=== PATIENT | female | born 1980 | race Two or more races ===

== ENCOUNTER 2022-06-29 09:04 | Outpatient (REF) | payer OTHER, SELFPAY ==
--- NOTE | ~2022-06-29 | XR_ITS ---
EXAMINATION: XR RIGHT SHOULDER XR LEFT SHOULDER XR RIGHT WRIST XR LEFT WRIST CLINICAL INFORMATION: Rheumatoid arthritis. COMPARISON: None available. TECHNIQUE: AP, lateral and oblique views of each wrist. AP, Grashey, transscapular Y and axillary views of each shoulder. FINDINGS: RIGHT Wrist: Normal anatomic alignment. Joint spaces are maintained. No bony erosions. No displaced fracture. No focal radiographic soft tissue swelling. Shoulder: Normal alignment. Acromioclavicular and glenohumeral joint spaces are maintained. No displaced fracture or dislocation. No abnormal soft tissue calcifications posterior superior humeral head. LEFT Wrist: Normal anatomic alignment. Joint spaces are maintained. No bony erosions. No displaced fracture. No focal radiographic soft tissue swelling. Shoulder: Normal alignment. Acromioclavicular and glenohumeral joint spaces are maintained. No displaced fracture or dislocation. No abnormal soft tissue calcifications. XR/XR shoulder LT min 2V IMPRESSION: Right shoulder calcific tendinosis.
--- NOTE | ~2022-06-29 | XR_ITS ---
EXAMINATION: XR RIGHT SHOULDER XR LEFT SHOULDER XR RIGHT WRIST XR LEFT WRIST CLINICAL INFORMATION: Rheumatoid arthritis. COMPARISON: None available. TECHNIQUE: AP, lateral and oblique views of each wrist. AP, Grashey, transscapular Y and axillary views of each shoulder. FINDINGS: RIGHT Wrist: Normal anatomic alignment. Joint spaces are maintained. No bony erosions. No displaced fracture. No focal radiographic soft tissue swelling. Shoulder: Normal alignment. Acromioclavicular and glenohumeral joint spaces are maintained. No displaced fracture or dislocation. No abnormal soft tissue calcifications posterior superior humeral head. LEFT Wrist: Normal anatomic alignment. Joint spaces are maintained. No bony erosions. No displaced fracture. No focal radiographic soft tissue swelling. Shoulder: Normal alignment. Acromioclavicular and glenohumeral joint spaces are maintained. No displaced fracture or dislocation. No abnormal soft tissue calcifications. XR/XR shoulder RT min 2V IMPRESSION: Right shoulder calcific tendinosis.
--- NOTE | ~2022-06-29 | XR_ITS ---
EXAMINATION: XR RIGHT SHOULDER XR LEFT SHOULDER XR RIGHT WRIST XR LEFT WRIST CLINICAL INFORMATION: Rheumatoid arthritis. COMPARISON: None available. TECHNIQUE: AP, lateral and oblique views of each wrist. AP, Grashey, transscapular Y and axillary views of each shoulder. FINDINGS: RIGHT Wrist: Normal anatomic alignment. Joint spaces are maintained. No bony erosions. No displaced fracture. No focal radiographic soft tissue swelling. Shoulder: Normal alignment. Acromioclavicular and glenohumeral joint spaces are maintained. No displaced fracture or dislocation. No abnormal soft tissue calcifications posterior superior humeral head. LEFT Wrist: Normal anatomic alignment. Joint spaces are maintained. No bony erosions. No displaced fracture. No focal radiographic soft tissue swelling. Shoulder: Normal alignment. Acromioclavicular and glenohumeral joint spaces are maintained. No displaced fracture or dislocation. No abnormal soft tissue calcifications. XR/XR hand wrist RT IMPRESSION: Right shoulder calcific tendinosis.
--- NOTE | ~2022-06-29 | XR_ITS ---
EXAMINATION: XR RIGHT SHOULDER XR LEFT SHOULDER XR RIGHT WRIST XR LEFT WRIST CLINICAL INFORMATION: Rheumatoid arthritis. COMPARISON: None available. TECHNIQUE: AP, lateral and oblique views of each wrist. AP, Grashey, transscapular Y and axillary views of each shoulder. FINDINGS: RIGHT Wrist: Normal anatomic alignment. Joint spaces are maintained. No bony erosions. No displaced fracture. No focal radiographic soft tissue swelling. Shoulder: Normal alignment. Acromioclavicular and glenohumeral joint spaces are maintained. No displaced fracture or dislocation. No abnormal soft tissue calcifications posterior superior humeral head. LEFT Wrist: Normal anatomic alignment. Joint spaces are maintained. No bony erosions. No displaced fracture. No focal radiographic soft tissue swelling. Shoulder: Normal alignment. Acromioclavicular and glenohumeral joint spaces are maintained. No displaced fracture or dislocation. No abnormal soft tissue calcifications. XR/XR hand wrist LT IMPRESSION: Right shoulder calcific tendinosis.
[2022-06-29 10:13] LABS: MANUAL DIFF FLAG NO
[2022-06-29 10:29] LABS: Basophils Percent Auto 0.4 % (0-2); Eosinophils Absolute Auto 0.1 X10*3/uL (0.0-0.4); Eosinophils Percent Auto 1.6 % (0-4); Hematocrit 37.4 % (37.0-47.0); Hemoglobin 11.3 g/dl (12.0-16.0); Imm Gran Abs Auto 0.04 X10*3/uL (0.00-0.03); Imm Gran Pct Auto 0.4 % (0.0-0.4); Lymphocytes Absolute Auto 1.3 X10*3/uL (1.2-4.9); Mean Corpuscular HGB Conc 30.2 g/dl (31.0-35.0); Mean Corpuscular Volume 76.2 fL (80.0-98.0); Mean Platelet Volume 8.9 fL (9.4-12.3); Monocytes Absolute Auto 0.4 X10*3/uL (0.1-1.2); Monocytes Percent Auto 3.9 % (2-11); Neutrophils Absolute Auto 7.2 x10*3/uL (2.0-8.3); Neutrophils Percent Auto 79.7 % (45-73); Platelet Count 329 X10*3/uL (160-400); Red Blood Count 4.91 X10*6/uL (4.20-5.50)
[2022-06-29 10:48] LABS: Estimated Average Glucose 177 mg/dL; Hemoglobin A1c % 7.8 %
[2022-06-29 11:02] LABS: Appearance Urine Cloudy; Color Urine Orange; Glucose Urine UA Negative (Negative); Leukocyte Esterase Urine Moderate (2+) (Negative); Nitrite Urine Negative (Negative); Specific Gravity - Urine 1.025 (1.005-1.025); UMIC TRIGGER UA YES; Urine Blood Large (3+) (Negative); Urine Ketones Negative (Negative); Urine Protein 100 (2+) mg/dL (Neg-Trace)
[2022-06-29 11:07] LABS: Alanine Aminotransferase 13 U/L (0-31); Albumin Level 3.8 g/dL (3.5-5.0); Alkaline Phosphatase 83 U/L (39-117); Anion Gap 14 (12-20); Aspartate Amino Transferase 11 U/L (5-31); Bilirubin Total 0.8 mg/dL (0.0-1.0); Blood Urea Nitrogen 19 mg/dL (9-16); C Reactive Protein 5.92 mg/dL (< or = 0.50); Calcium 8.9 mg/dL (8.4-10.2); Carbon Dioxide 24 mmol/L (22-29); Chloride 105 mmol/L (96-108); Estimated Glomerular Filt Rate > 60; Glucose Random 134 mg/dL (60-115); Potassium 4.3 mmol/L (3.3-5.1); Rheumatoid Factor < 13.0 IU/mL (<15.0); Sodium 139 mmol/L (135-145)
[2022-06-29 11:11] LABS: Bacteria Urine None Seen (None Seen); Hyaline Casts Urine 0-2 /LPF (0-2); Other Crystals Urine Present
[2022-06-29 11:21] LABS: Erythrocyte Sedimentation Rate 54 MM/HR (0-20)
[2022-06-29 11:25] LABS: Creatinine Urine 191.25 mg/dL; Protein/Creatinine Ratio, Ur 0.19 (<0.2); Total Protein Urine Random 36 mg/dL (<12)
[2022-06-29 11:28] LABS: HBc Num1 0.05 S/CO (0.00-0.79); HIV AB/AG Nonreactive (Nonreactive); HIV Num 1 0.06 S/CO (0.00-0.99); Hepatitis A Antibody IgM 0.13 Index (0-0.79); Hepatitis B Core Antibody Nonreactive (Nonreactive); Hepatitis B Surface Antigen Negative (Negative); ~HepC Num1 0.11 S/CO (0.00-0.79); ~Hepatitis A Antibody IgM Nonreactive (Nonreactive); ~Hepatitis B Surface Antibody NONREACTIVE (Nonreactive); ~Hepatitis C Antibody Nonreactive (Nonreactive)
[2022-07-01 23:39] LABS: TS Negative Control Passed; TS Panel A 0; TS Panel B 0; TS Positive Control Passed; TSpotTB Negative (Negative)
[2022-07-02 13:13] LABS: Cyclic Citrullinated Peptide <16 UNITS
[2022-07-02 20:57] LABS: Anti DNA DS Antibody <1 IU/mL; Antibody to SS-A Antigen <1.0 NEG AI (<1.0 NEG); Antibody to SS-B Antigen <1.0 NEG AI (<1.0 NEG); SM/Ribonucleoprotein Ab <1.0 NEG AI (<1.0 NEG); Smith Protein <1.0 NEG AI (<1.0 NEG)
[2022-07-03 07:43] LABS: Complement C3 185 mg/dL (83-193)
[2022-07-03 23:23] LABS: Prot Elec - Albumin 3.6 g/dL (3.8-4.8); Prot Elec - Alpha1 0.4 g/dL (0.2-0.3); Prot Elec - Beta 1 0.5 g/dL (0.4-0.6); Prot Elec - Beta 2 0.5 g/dL (0.2-0.5); Prot Elec - Gamma 1.3 g/dL (0.8-1.7); Prot Elec - Total Protein 7.4 g/dL (6.1-8.1)
[2022-07-04 07:13] LABS: DRVVT Confirmation Negative (Negative); Hexagonal Phase Neutralization Weak Positive (Negative)
[2022-07-04 07:50] LABS: PTT (LAC) Screen 45 sec (<=40); Thrombin Clotting Time 17 sec (13-19)
[2022-07-05 12:09] LABS: IgA 261 mg/dL (47-310); IgG 1358 mg/dL (600-1640); IgM 85 mg/dL (50-300)
[2022-07-06 14:29] LABS: Beta-2 Glycoprotein IgA <2.0 U/mL (<20.0); Beta-2 Glycoprotein IgG <2.0 U/mL (<20.0); Beta-2 Glycoprotein IgM 2.7 U/mL (<20.0)
[2022-07-07 12:43] LABS: DNAds, Crithidia Antibody Negative (Negative)
[2022-07-10 14:08] LABS: Cardiolipin IgG Ab <2.0 GPL-U/mL; Cardiolipin IgM Ab 2.3 MPL-U/mL
[2022-07-10 15:19] LABS: Anti Nuclear Antibody Screen POSITIVE (NEGATIVE)
== END 2022-06-29 09:05 | disposition home or self-care (01) ==
LOC: HO.XRAY 09:04
PROVIDERS: Visit Provider Student in an Organized Health Care Education/Training Program
DX: Z11.59 Encounter for screening for other viral diseases (principal); Z11.4 Encounter for screening for human immunodeficiency virus [HIV]; L93.0 Discoid lupus erythematosus; M06.9 Rheumatoid arthritis, unspecified; D68.61 Antiphospholipid syndrome; E11.9 Type 2 diabetes mellitus without complications; M25.50 Pain in unspecified joint; Z72.89 Other problems related to lifestyle
CPT/HCPCS: 36415; 73030; 73110; 73130; 80053; 81001; 82550; 82784; 83036; 84156; 84165; 84550; 85025; 85597; 85613; 85652; 85730; 86038; 86039; 86140; 86146; 86147; 86160; 86200; 86225; 86235; 86255; 86334; 86431; 86481; 86704; 86706; 86709; 86803; 87340; 87389; 99202

== ENCOUNTER → 2022-09-05 13:47 | Outpatient (REF) | payer OTHER, SELFPAY ==
--- NOTE | 2022-09-05 13:51 | CA_ITS ---
Transthoracic Echocardiogram Patient (Last, First, Middle): Lucero Fonseca, Gender: Female Date of : 1980 Age: 42 Procedure Date: 09/05/2022 Procedure Type: Transthoracic Echocardiogram Location: OP Height: 167.64 cm Weight: 176.9 kg BSA: 2.66 m2 Heart Rate: 93 bpm BP: 130 / 65 mmHg Microbiology Lab Assistant: TALISHA Referring MD: Mallory BOOGIE Garbage Pick Up Man: Emanuel Graves MD Symptoms: galvan, morbid obesity, hx MN R06.09 Study Quality: Technically Difficult ECG Rhythm: Sinus Conclusions: - 1. Technically limited study despite use of contrast agent 2. Low normal LV ejection fraction 50-55% with grade 1 diastolic dysfunction 3. Limited visualization of cardiac valves with cardiac valvular Doppler within normal limits Findings Procedure Information Contrast agent, definity, is being given per protocol without apparent complications. Left Ventricle Normal left ventricular cavity size. There is mildly increased left ventricular wall thickness. The left ventricular systolic function is low normal. Spectral Doppler is indicative of an impaired relaxation filling pattern. E/E prime ratio is <8, consistent with normal filling pressures. Evidence suggests grade I (mild) diastolic dysfunction. Right Ventricle The right ventricle was not well visualized. Atria The left atrium was not well visualized. Interatrial shunt cannot be excluded. The right atrium was not well visualized. Aortic Valve The aortic valve was not well visualized. There is no aortic valve stenosis. There is no aortic valve regurgitation. Mitral Valve The mitral valve was not well visualized. There is trace mitral valve regurgitation. There is no mitral valve stenosis. Pulmonic Valve The pulmonic valve was not well visualized. Tricuspid Valve The tricuspid valve was not well visualized. Tricuspid regurgitation envelope is inadequate for calculation of right ventricular systolic pressure. Great Vessels The aorta was not well visualized. The pulmonary artery was not well visualized. Venous The inferior vena cava was not well visualized. Pericardium/Pleural The pericardium was not well visualized. Prior Study Comparison No prior study available for comparison. Measurements 2D Linear Measurements IVSd: 1.30 0.6-0.9/0.6-1.0 cm LVIDd: 4.20 3.9-5.3/4.2-5.9 cm LVIDd Index: 1.58 2.4-3.2/2.2-3.1 cm/m2 LVIDs: 2.50 2.0-3.6 cm LVPWd: 1.35 0.7-1.1 cm LA Diam: 3.40 2.7-3.8/3.0-4.0 cm LAIDs Index: 1.28 1.5-2.3 cm/m2 LV Mass: 279.67 67-162/88-224 g LV Mass Index: 105.14 43-95/49-115 g/m2 LVOT Diam: 2.00 3.0+(-)1.3 cm 2D Systolic Function EF 4C: 54.80 >55% EF 2C: 51.40 >55% EF BiP: 52.80 >55% Mitral Valve MV Pk E: 0.56 MV PK A: 0.72 MV Decel Time: 349.00 E/A: 0.80 E'Lateral: 9.90 E'Medial: 6.31 E/E' Med: 8.90 E/E' Lat: 5.70 PHT: 102.00 MVA PHT: 2.16 Decel Hamlin: 1.61 Aortic Valve AoV Pk Nii: 1.29 AoV Mn Nii: 0.96 AoV VTI: 0.23 AoV Pk Grad: 7.00 Aov Mn Grad: 4.00 MESHA Cont.VTI: 2.68 LVOT LVOT Pk Nii: 1.04 LVOT Mn Nii: 0.74 LVOT VTI: 0.19 LVOT Pk Grad: 4.00 LVOT Mn Grad: 3.00 LVOT Diam: 2.00 LVOT Area: 3.14 Diastolic Function MV Pk E: 0.56 MV Pk A: 0.72 E/A: 0.80 E'Medial: 6.31 E/E' Med: 8.90 E' Laterial: 9.90 E/E' Lat: 5.70 Right Ventricle TAPSE (mm): 19.80 TVS' Nii: 13.60 Great Vessels Aorta Sinus of Valsalva: 3.60 2.0-3.5 cm Ao Asc: 3.30 2.1-3.4 cm Pulmonary Valve PV Pk Nii: 1.06 Peak PV Grad: 4.00 Updated in Other Vendor System with Status of Final Emanuel Graves MD electronically signed on 09/06/2022 12:24:45 PM with status of Final
== END ==
LOC: HO.CARD 13:47
PROVIDERS: Visit Provider Nurse Practitioner Family
DX: R06.09 Other forms of dyspnea (principal)
CPT/HCPCS: 93306; Q9957

== ENCOUNTER → 2022-09-05 13:51 | Outpatient (BNV) | payer OTHER, SELFPAY | PROVIDERS: Visit Provider Internal Medicine Cardiovascular Disease | DX: I51.9 Heart disease, unspecified (principal); R06.09 Other forms of dyspnea | CPT/HCPCS: 93306 ==

== ENCOUNTER 2022-09-19 08:23 | Outpatient (AMB) | payer OTHER, SELFPAY ==
--- NOTE | 2022-09-19 08:32 | MHC.OFFVIS ---
Intake Vital Signs 09/19/22 08:33 09/19/22 08:47 Height 5 ft 6 in Weight 439 lb 13.155 oz BMI 71.0 BP 160/80 H 152/95 H Blood Pressure Location Rt radial Rt radial Position Sitting Sitting Pulse 83 Pulse Source Pulse Oximeter Temp 97.9 F Temp Source Skin Pulse Oximetry (%) 97 Intake Visit Reasons: SLE Intake Note: Pt seen today for SLE follow up and test results. Jersey Knitter Required: No Accompanied by: Self / Same As Patient Allergies aspirin Allergy (Unknown, Verified 09/19/22 08:35) Unknown clindamycin Allergy (Unknown, Verified 09/19/22 08:35) Unknown diazepam [From Valium] Allergy (Unknown, Verified 09/19/22 08:35) Unknown gabapentin [From Neurontin] Allergy (Unknown, Verified 09/19/22 08:35) Unknown hydroxychloroquine Allergy (Unknown, Verified 09/19/22 08:35) Unknown ibuprofen Allergy (Unknown, Verified 09/19/22 08:35) Unknown morphine Allergy (Unknown, Verified 09/19/22 08:35) Unknown naproxen Allergy (Unknown, Verified 09/19/22 08:35) Unknown Sulfa (Sulfonamide Antibiotics) Allergy (Unknown, Verified 09/19/22 08:35) Unknown sulfamethoxazole [From Bactrim] Allergy (Unknown, Verified 09/19/22 08:35) Unknown sumatriptan Allergy (Unknown, Verified 09/19/22 08:35) Unknown tramadol Allergy (Unknown, Verified 09/19/22 08:35) Unknown trimethoprim [From Bactrim] Allergy (Unknown, Verified 09/19/22 08:35) Unknown Medication List - Last Reconciled 09/19/22 by Shannan Arrieta MD acetaminophen ER 1,300 mg PO DAILY dulaglutide (Trulicity) 0.75 mg subcut QWEEK duloxetine 60 mg PO DAILY erenumab-aooe (Aimovig Autoinjector) mg subcut .qmonth ferrous sulfate 325 mg PO DAILY fluticasone propionate 110 mcg/actuation (Flovent HFA) 1 puff inhalation BID PRN furosemide 20 mg PO DAILY PRN loratadine 10 mg PO DAILY medroxyprogesterone 150 mg IM [id number] metformin 500 mg PO BID sennosides (senna) 34.4 mg PO BID verapamil 40 mg PO DAILY PRN HPI HPI Comments History of Present Illness Details Patient returns for follow-up after completion of her blood work. Continues to feel about the same Initial history: This is a 41-year-old female presents for evaluation of multiple joint pain. She has a complex past medical history. 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 Patient walks with a cane for left leg weakness. She states that she has had diffuse pain for many years, she has had pain since she was a child. She had an spinal injection about 10 years ago without relief. She is currently on duloxetine for diffuse pain. She states that she was diagnosed with rheumatoid arthritis by Dr. Serrano in [place], she lost her follow-up appointment so she was unable to see her again. More recently she was diagnosed with lupus by her PCP. Patient states that she has morning stiffness of her hands and multiple joints in her body the last around 2 hours. She takes Tylenol with little relief. She also takes duloxetine for pain. She has rashes on her face that vary in severity. She is unaware of any other rashes. She is unaware of history of blood clots. She has never been . She has a maternal aunt with lupus and another maternal aunt with rheumatoid arthritis. [facility] Medical History (Updated 09/19/22 @ 13:15 by Shannan Arrieta MD) Abnormal Papanicolaou smear of cervix Arthritis of both knees Cardiac arrest Depressive disorder Fibromyalgia Irregular periods Morbid obesity Polyarthralgia PTSD (post-traumatic stress disorder) Type 2 diabetes mellitus Surgical History Hx of dilation and curettage Family History Mother Diabetes Hypertension Multiple myeloma Father Diabetes Hypertension Heart disease Social History Alcohol intake: current Alcohol intake frequency: does not drink Patient Tobacco Use Status: Never used Tobacco e-Cigarette/Vaping Use: Never Used Review of Systems Const Reports fatigue and Reports weakness Musc Reports arthralgias, Reports joint swelling and Reports stiffness Skin/Breast Reports rash Neuro Reports weakness Endo Reports fatigue Physical Exam Vital Signs: Last Vital Signs Temp 97.9 F 09/19/22 08:33 Pulse 83 09/19/22 08:33 BP 152/95 H 09/19/22 08:47 Pulse Ox 97 09/19/22 08:33 BMI result Body Mass Index 71.0 Const General: cooperative and healthy appearing Nutritional Appearance: obese morbidly obese Orientation/consciousness: patient oriented x3 HEENT Head: Yes normocephalic and Yes atraumatic Resp Effort & Inspection: normal respiratory effort and able to speak in complete sentences Skin Other: Butterfly are rash on her cheeks and across her nose with sparing of the nasolabial fold, Neuro General: patient oriented x3 Extrem Other: Significantly limited shoulder abduction bilaterally Multiple fibromyalgia tender points No wrist swelling or tenderness but pain with full extension bilaterally Normal nailfold capillaroscopy Results Reviewed Results Reviewed: Labs 04/05? Ferritin 37 (6-115) Iron 26 (35-150) TIBC 326 (250-450) TSH normal? CRP 49 (0-9.0) ESR 34 CMP unremarkable CBC unremarkable Assessment & Plan Assessment & Plan (1) Undifferentiated connective tissue disease: Code(s): M35.9 - Systemic involvement of connective tissue, unspecified Plan: This is a 42-year-old female who presents for evaluation of diffuse joint pain for many years.? On exam she has a rash across her face suspicious for a malar rash.? SLE and rheumatoid arthritis run on the maternal side of her family.? Labs show a positive BLAKE with negative sub serologies, normal complements, no cytopenias. She has significantly elevated inflammatory markers which can be related to obesity. Will start a Plaquenil trial. If no improvement in 3-6 months. Will discontinue (2) Long-term use of hydroxychloroquine: Code(s): Z79.899 - Other [facility] (current) drug therapy Plan: Discussed risks of retinopathy of hydroxychloroquine. Referred patient to an nut tightener for an eye exam. Per notes patient had an allergy to hydroxychloroquine in the past. Patient does not recall. Will restart cautiously. Plan I spent 26 minutes reviewing patient's chart, evaluating patient, ordering diagnostic workup, counseling patient and documenting in the chart Orders: Orders Lupus Anticoagulant Panel Today M32.9 - Systemic lupus erythematosus, unspecified Anti DNA DS Antibody Today M32.9 - Systemic lupus erythematosus, unspecified Complement C3 Today M32.9 - Systemic lupus erythematosus, unspecified Complement C4 Today M32.9 - Systemic lupus erythematosus, unspecified C Reactive Protein Today M32.9 - Systemic lupus erythematosus, unspecified Erythrocyte Sedimentation Rate Today M32.9 - Systemic lupus erythematosus, unspecified Protein Creatinine Ratio, Ur Today M32.9 - Systemic lupus erythematosus, unspecified UA w Microscopic Today M32.9 - Systemic lupus erythematosus, unspecified Complete Blood Count Auto Diff Today M32.9 - Systemic lupus erythematosus, unspecified Comprehensive Met. Panel Today M32.9 - Systemic lupus erythematosus, unspecified Referrals Ophthalmology Referral Z79.899 - Other terminal block assembler (current) drug therapy Medications: New hydroxychloroquine 200 mg PO DAILY 60 tabs 2RF Coding Level of Care Code Est Pt Level 4 (83233) Diagnoses Undifferentiated connective tissue disease M35.9 Long-term use of hydroxychloroquine Z79.899
[2022-09-19 08:33] VITALS: BP 160/80; PULSE 83; TEMP 36.6; O2SAT 97; BMI 71.0
[2022-09-19 08:47] VITALS: BP 152/95
== END 2022-09-19 09:10 | disposition home or self-care (01) ==
PROVIDERS: PCP Nurse Practitioner Family; Visit Provider Student in an Organized Health Care Education/Training Program
DX: M35.89 Other specified systemic involvement of connective tissue (principal); Z79.899 Other long term (current) drug therapy
CPT/HCPCS: 99214

== ENCOUNTER → 2022-09-19 08:23 | Outpatient (BNVA) | payer OTHER, SELFPAY | PROVIDERS: Visit Provider Student in an Organized Health Care Education/Training Program | DX: M35.9 Systemic involvement of connective tissue, unspecified (principal); Z79.899 Other long term (current) drug therapy | CPT/HCPCS: 99212 ==

== ENCOUNTER 2022-12-20 12:46 | Outpatient (REF) | payer OTHER, SELFPAY ==
[2022-12-20 13:05] LABS: MANUAL DIFF FLAG NO
[2022-12-20 13:27] LABS: Basophils Absolute Auto 0.1 X10*3/uL (0.0-0.2); Basophils Percent Auto 0.6 % (0-2); Eosinophils Absolute Auto 0.1 X10*3/uL (0.0-0.4); Eosinophils Percent Auto 1.2 % (0-4); Hematocrit 40.8 % (37.0-47.0); Hemoglobin 12.4 g/dl (12.0-16.0); Imm Gran Abs Auto 0.06 X10*3/uL (0.00-0.03); Imm Gran Pct Auto 0.6 % (0.0-0.4); Lymphocytes Absolute Auto 1.5 X10*3/uL (1.2-4.9); Lymphocytes Percent Auto 15.9 % (20-40); Mean Corpuscular HGB Conc 30.4 g/dl (31.0-35.0); Mean Corpuscular Hemoglobin 23.4 pg (27.0-33.0); Mean Corpuscular Volume 76.8 fL (80.0-98.0); Mean Platelet Volume 8.8 fL (9.4-12.3); Monocytes Absolute Auto 0.5 X10*3/uL (0.1-1.2); Neutrophils Absolute Auto 7.3 x10*3/uL (2.0-8.3); Neutrophils Percent Auto 76.7 % (45-73); Platelet Count 286 X10*3/uL (160-400); Red Blood Count 5.31 X10*6/uL (4.20-5.50); Red Cell Distribution Width 16.9 % (11.0-16.0); White Blood Count 9.5 X10*3/uL (4.8-10.8)
[2022-12-20 14:14] LABS: Erythrocyte Sedimentation Rate 53 MM/HR (0-20)
[2022-12-20 14:19] LABS: Appearance Urine Clear; Color Urine Yellow; Glucose Urine UA >=1000 mg/dL (Negative); Leukocyte Esterase Urine Negative (Negative); Nitrite Urine Negative (Negative); PH 5.5 (5.0-9.0); Specific Gravity - Urine >= 1.030 (1.005-1.025); UMIC TRIGGER UA YES; Urine Blood Negative (Negative); Urine Ketones Trace mg/dL (Negative); Urine Protein Trace mg/dL (Neg-Trace)
[2022-12-20 14:20] LABS: Alanine Aminotransferase 9 U/L (0-31); Alkaline Phosphatase 107 U/L (39-117); Anion Gap 13 (12-20); Aspartate Amino Transferase 9 U/L (5-31); Bilirubin Total 0.5 mg/dL (0.0-1.0); Blood Urea Nitrogen 24 mg/dL (9-16); C Reactive Protein 4.03 mg/dL (< or = 0.50); Calcium 9.6 mg/dL (8.4-10.2); Carbon Dioxide 26 mmol/L (22-29); Chloride 100 mmol/L (96-108); Estimated Glomerular Filt Rate > 60; Potassium 4.3 mmol/L (3.3-5.1); Sodium 135 mmol/L (135-145); Total Protein 8.1 g/dL (6.5-8.0)
[2022-12-20 14:24] LABS: Glucose Random 360 mg/dL (60-115)
[2022-12-20 14:31] LABS: Bacteria Urine Trace (None Seen); Hyaline Casts Urine 0-2 /LPF (0-2); RBC Urine 0-2 /HPF (0-2); WBC Urine 0-5 /HPF (0-5)
[2022-12-20 15:05] LABS: Creatinine Urine 185.65 mg/dL; Protein/Creatinine Ratio, Ur 0.11 (<0.2); Total Protein Urine Random 20 mg/dL (<12)
[2022-12-21 12:53] LABS: Anti DNA DS Antibody <1 IU/mL
[2022-12-24 12:53] LABS: Complement C3 121 mg/dL (83-193)
[2022-12-27 07:19] LABS: PTT (LAC) Screen 37 sec (<=40)
== END 2022-12-20 12:47 | disposition home or self-care (01) ==
LOC: HO.LAB 12:46
PROVIDERS: PCP Nurse Practitioner Family; Visit Provider Student in an Organized Health Care Education/Training Program
DX: M32.9 Systemic lupus erythematosus, unspecified (principal); M35.9 Systemic involvement of connective tissue, unspecified; Z79.899 Other long term (current) drug therapy
CPT/HCPCS: 36415; 80053; 81001; 82570; 84156; 85025; 85597; 85598; 85613; 85652; 85730; 86140; 86160; 86225; 99212

== ENCOUNTER 2022-12-20 13:17 | Outpatient (AMB) | payer OTHER, SELFPAY ==
--- NOTE | 2022-12-20 13:28 | MHC.OFFVIS ---
Intake Vital Signs 12/20/22 13:29 Height 5 ft 6 in Weight 440 lb 4.21 oz BMI 71.1 BP 148/76 H Blood Pressure Location Rt brachial Position Sitting Pulse 108 H Pulse Source Pulse Oximeter Temp 97.2 F Temp Source Skin Pulse Oximetry (%) 96 Intake Visit Reasons: UCTD Intake Note: Pt last seen 09/19/22, presents today for follow up and test results. Acacia Walton approx a month ago, in ICU 3-4 days Sales Support Associate Required: No Accompanied by: Self / Same As Patient Allergies aspirin Allergy (Unknown, Verified 12/20/22 13:34) Unknown clindamycin Allergy (Unknown, Verified 12/20/22 13:34) Unknown diazepam [From Valium] Allergy (Unknown, Verified 12/20/22 13:34) Unknown gabapentin [From Neurontin] Allergy (Unknown, Verified 12/20/22 13:34) Unknown hydroxychloroquine Allergy (Unknown, Verified 12/20/22 13:34) Unknown ibuprofen Allergy (Unknown, Verified 12/20/22 13:34) Unknown morphine Allergy (Unknown, Verified 12/20/22 13:34) Unknown naproxen Allergy (Unknown, Verified 12/20/22 13:34) Unknown Sulfa (Sulfonamide Antibiotics) Allergy (Unknown, Verified 12/20/22 13:34) Unknown sulfamethoxazole [From Bactrim] Allergy (Unknown, Verified 12/20/22 13:34) Unknown sumatriptan Allergy (Unknown, Verified 12/20/22 13:34) Unknown tramadol Allergy (Unknown, Verified 12/20/22 13:34) Unknown trimethoprim [From Bactrim] Allergy (Unknown, Verified 12/20/22 13:34) Unknown Medication List - Last Reconciled 12/20/22 by Shannan Arrieta MD acetaminophen ER 1,300 mg PO DAILY dulaglutide (Trulicity) 0.75 mg subcut QWEEK duloxetine 60 mg PO DAILY erenumab-aooe (Aimovig Autoinjector) mg subcut .qmonth ferrous sulfate 325 mg PO DAILY fluticasone propionate 110 mcg/actuation (Flovent HFA) 1 puff inhalation BID PRN furosemide 20 mg PO DAILY PRN hydroxychloroquine 200 mg PO DAILY loratadine 10 mg PO DAILY medroxyprogesterone 150 mg IM [id number] metformin 500 mg PO BID sennosides (senna) 34.4 mg PO BID verapamil 40 mg PO DAILY PRN HPI HPI Comments History of Present Illness Details Patient returns for follow-up. She states that towards the end of October, early November she presented to her PCP with left upper extremity weakness, numbness. She stated that her PCP noted left facial droop and sent her to the ER. She stated that she was admitted at [facility] in the ICU for 3-4 days for suspected stroke. She states that multiple tests were done. She not recall whether she was diagnosed with a stroke. She was not started on regular blood thinners. She has been taking hydroxychloroquine 1 tab daily since last visit. She does not believe she had any side effects or benefits from it. She continues to have the rash on her face. Initial history: This is a 41-year-old female presents for evaluation of multiple joint pain. She has a complex past medical history. 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 Patient walks with a cane for left leg weakness. She states that she has had diffuse pain for many years, she has had pain since she was a child. She had an spinal injection about 10 years ago without relief. She is currently on duloxetine for diffuse pain. She states that she was diagnosed with rheumatoid arthritis by Dr. Serrano in [place], she lost her follow-up appointment so she was unable to see her again. More recently she was diagnosed with lupus by her PCP. Patient states that she has morning stiffness of her hands and multiple joints in her body the last around 2 hours. She takes Tylenol with little relief. She also takes duloxetine for pain. She has rashes on her face that vary in severity. She is unaware of any other rashes. She is unaware of history of blood clots. She has never been . She has a maternal aunt with lupus and another maternal aunt with rheumatoid arthritis. [facility] Medical History Polyarthralgia Cardiac arrest Irregular periods Type 2 diabetes mellitus Morbid obesity Depressive disorder Fibromyalgia Abnormal Papanicolaou smear of cervix PTSD (post-traumatic stress disorder) Arthritis of both knees Surgical History Hx of dilation and curettage Family History Mother Diabetes Hypertension Multiple myeloma Father Diabetes Hypertension Heart disease Social History Alcohol intake: current Alcohol intake frequency: does not drink Patient Tobacco Use Status: Never used Tobacco e-Cigarette/Vaping Use: Never Used Review of Systems Const Reports fatigue and Reports weakness Musc Reports arthralgias and Reports stiffness Skin/Breast Reports rash Neuro Reports weakness Endo Reports fatigue Physical Exam Vital Signs: Last Vital Signs Temp 97.2 F 12/20/22 13:29 Pulse 108 H 12/20/22 13:29 BP 148/76 H 12/20/22 13:29 Pulse Ox 96 12/20/22 13:29 BMI result Body Mass Index 71.1 Const General: cooperative and healthy appearing Nutritional Appearance: obese morbidly obese Orientation/consciousness: patient oriented x3 HEENT Head: Yes normocephalic and Yes atraumatic Resp Effort & Inspection: normal respiratory effort and able to speak in complete sentences Neuro General: patient oriented x3 Extrem Other: Significantly limited shoulder abduction bilaterally Multiple fibromyalgia tender points No wrist swelling or tenderness but pain with full extension bilaterally Normal nailfold capillaroscopy Results Reviewed Results Reviewed: Labs 04/05? Ferritin 37 (6-115) Iron 26 (35-150) TIBC 326 (250-450) TSH normal? CRP 49 (0-9.0) ESR 34 CMP unremarkable CBC unremarkable Assessment & Plan Assessment & Plan (1) Undifferentiated connective tissue disease: Code(s): M35.9 - Systemic involvement of connective tissue, unspecified Plan: This is a 42-year-old female who presents for evaluation of diffuse joint pain for many years.? On exam she has a rash across her face, but it is not indurated. SLE and rheumatoid arthritis run on the maternal side of her family.? Labs show a positive BLAKE with negative sub serologies, normal complements, no cytopenias. She has significantly elevated inflammatory markers which can be related to obesity. Patient mentions that she was admitted at [facility] last month for a suspected stroke. Will retrieve records Patient has been taking hydroxychloroquine 200 mg daily for the last 3 months without any noticeable symptomatic improvement. Repeat labs are pending. Will review repeat labs and call patient. Will consider discontinuing hydroxychloroquine. (2) Long-term use of hydroxychloroquine: Code(s): Z79.899 - Other shelter (current) drug therapy Plan: Patient just saw steam fitter supervisor and was referred for a visual field test. Plan I spent 26 minutes reviewing patient's chart, evaluating patient, counseling patient and documenting in the chart Coding Level of Care Code Est Pt Level 4 (93770) Diagnoses Undifferentiated connective tissue disease M35.9 Long-term use of hydroxychloroquine Z79.899
[2022-12-20 13:29] VITALS: BP 148/76; PULSE 108; TEMP 36.2; O2SAT 96; BMI 71.1
== END 2022-12-20 14:02 | disposition home or self-care (01) ==
PROVIDERS: PCP Nurse Practitioner Family; Visit Provider Student in an Organized Health Care Education/Training Program
DX: M35.89 Other specified systemic involvement of connective tissue (principal); Z79.899 Other long term (current) drug therapy
CPT/HCPCS: 99214

== ENCOUNTER 2022-12-20 14:09 | Emergency (ER) | payer OTHER, MEDICAID, SELFPAY ==
--- NOTE | ~2022-12-20 | XR_ITS ---
EXAMINATION: XR FINGER, RIGHT CLINICAL INFORMATION: Trauma to index finger COMPARISON: None available. TECHNIQUE: 3 views of the right hand with attention to the index finger. FINDINGS: The bones and soft tissues are normal. No fracture. Alignment is anatomic. Joint spaces are maintained. XR/XR finger RT min 2V IMPRESSION: Normal finger radiographs.
[2022-12-20 15:20] VITALS: BP 148/93; PULSE 92; RESP 18; TEMP 36.1; O2SAT 98; BMI 63.6
[2022-12-20 16:00] VITALS: PULSE 96; RESP 14; O2SAT 96
--- NOTE | 2022-12-20 16:39 | ED_ITS ---
HPI - Extremity Problem General Chief complaint: Extremity Injury, Upper Stated complaint: Injury right hand Time Seen by Provider: 12/20/22 16:08 Source: patient Mode of arrival: ambulatory Limitations: no limitations History of Present Illness HPI Narrative: Patient is a 42-year-old [id number] female presenting to the emergency department with complaint of right index finger pain after accidentally getting her hand caught in a closing door home earlier today. She reports some numbness/tingling to distal tip of her finger. She reports limited range of motion due to pain. MD Complaint: extremity pain Onset (ago): hour(s) Pain Consistency: constant Location: right, upper extremity and other (index finger) Quality: aching Radiation: none Relieving factors: rest Exacerbating factors: palpation Associated symptoms: denies other symptoms Related Data Home Medications Medication Instructions Recorded Confirmed duloxetine 60 mg capsule,delayed 60 mg PO DAILY 06/20/22 release ferrous sulfate 325 mg (65 mg 325 mg PO DAILY 06/20/22 iron) tablet loratadine 10 mg capsule 10 mg PO DAILY 06/20/22 medroxyprogesterone 150 mg/mL 150 mg IM [id number] 06/20/22 intramuscular suspension acetaminophen 650 mg 1,300 mg PO DAILY 09/19/22 tablet,extended release dulaglutide 0.75 mg/0.5 mL 0.75 mg subcut QWEEK 09/19/22 subcutaneous pen injector (Trulicity) erenumab-aooe 140 mg/mL mg subcut .qmonth 09/19/22 subcutaneous auto-injector (Aimovig Autoinjector) fluticasone propionate 110 1 puff inhalation BID PRN 09/19/22 mcg/actuation HFA aerosol inhaler (Flovent HFA) furosemide 20 mg tablet 20 mg PO DAILY PRN 09/19/22 metformin 500 mg tablet 500 mg PO BID 09/19/22 sennosides 8.6 mg tablet (senna) 34.4 mg PO BID constipation 09/19/22 verapamil 40 mg tablet 40 mg PO DAILY PRN 09/19/22 Previous Rx's Medication Instructions Recorded hydroxychloroquine 200 mg tablet 200 mg PO DAILY #60 tabs 09/19/22 Allergies Allergy/AdvReac Type Severity Reaction Status Date / Time aspirin Allergy Unknown Unknown Verified 12/20/22 15:19 clindamycin Allergy Unknown Unknown Verified 12/20/22 15:19 diazepam [From Valium] Allergy Unknown Unknown Verified 12/20/22 15:19 gabapentin [From Neurontin] Allergy Unknown Unknown Verified 12/20/22 15:19 hydroxychloroquine Allergy Unknown Unknown Verified 12/20/22 15:19 ibuprofen Allergy Unknown Unknown Verified 12/20/22 15:19 morphine Allergy Unknown Unknown Verified 12/20/22 15:19 naproxen Allergy Unknown Unknown Verified 12/20/22 15:19 Sulfa (Sulfonamide Allergy Unknown Unknown Verified 12/20/22 15:19 Antibiotics) sulfamethoxazole Allergy Unknown Unknown Verified 12/20/22 15:19 [From Bactrim] sumatriptan Allergy Unknown Unknown Verified 12/20/22 15:19 tramadol Allergy Unknown Unknown Verified 12/20/22 15:19 trimethoprim [From Bactrim] Allergy Unknown Unknown Verified 12/20/22 15:19 Review of Systems Review of Systems: As per HPI. Yes all other systems are reviewed and are negative Constitutional: Constitutional: Reports as per HPI PMFSH Past Medical History Medical History Polyarthralgia Cardiac arrest Irregular periods Type 2 diabetes mellitus Morbid obesity Depressive disorder Fibromyalgia Abnormal Papanicolaou smear of cervix PTSD (post-traumatic stress disorder) Arthritis of both knees Surgical History Hx of dilation and curettage Family History Family History Mother Diabetes Hypertension Multiple myeloma Father Diabetes Hypertension Heart disease Social History Social History Alcohol intake: current Alcohol intake frequency: does not drink Patient Tobacco Use Status: Never used Tobacco e-Cigarette/Vaping Use: Never Used Advance Directives: No Physical Exam Vital Signs: Vital Signs: Last Vital Signs Temp 97 F 12/20/22 15:20 Pulse 96 12/20/22 16:00 Resp 14 12/20/22 16:00 BP 148/93 H 12/20/22 15:20 Pulse Ox 96 12/20/22 16:00 O2 Del Method Room Air 12/20/22 16:00 BMI result Body Mass Index 63.6 Vital signs have been reviewed and appear to be correct. Blood pressure elevated. Heart rate normal. Respiratory rate normal. Temperature normal. Oxygen saturation normal. Const: General: cooperative and no acute distress Orientation/consciousness: oriented to person, oriented to place, oriented to time and patient oriented x3 Limitations: no limitations HEENT: Head: Yes normocephalic and Yes atraumatic Ears: external ears normal General nose exam: Normal external nose present Face and sinus: Yes face symmetric Mouth: oropharynx normal and moist mucous membranes Throat: Yes uvula midline Eyes: Pupils: Equal, round and reactive pupils present Neck: Neck: Yes normal visual inspection and Yes supple Resp: Effort & Inspection: normal respiratory effort and able to speak in complete sentences Auscultation: clear to auscultation bilaterally Cardio: Rate: regular rate Rhythm: regular rhythm Heart sounds: S1 normal heart sound present and S2 normal heart sound present Skin: General skin exam: elasticity normal and turgor normal Neuro: General: oriented to person, oriented to place, oriented to time, patient oriented x3, moves all extremities, no focal motor deficits and CN's II- XI intact bilaterally Cranial nerves: Yes Equal, round and reactive pupils present Cognition (Neuro): normal cognition Extrem: General: Yes full ROM Right upper extremity: Extremity exam: right hand Details: normal capillary refill, neuromotor exam normal, neurosensory exam normal, tenderness Location: of the 2nd digit Location: involving the entire digit, normal ROM of fingers and abnormal ROM of finger (unable to fully flex 2nd digit due to pain) Psych: Mental Status: mental status grossly normal Affect: normal affect Thought process: Normal thought process present Medical Decision Making Medical Decision Making MDM Narrative: Patient is a 42-year-old [id number] female presenting to the emergency department with complaint of right index finger pain after accidentally getting her hand caught in a closing door home earlier today. On exam patient is awake, A+Ox3, BP elevated, VS otherwise WNL, afebrile, normal neurological exam without focal deficits, physical exam findings as above. Given reported symptoms and physical exam findings, initial differential includes contusion, fracture, dislocation. X-ray notable for no evidence of fracture to 2nd finger on right hand. My interpretation is in agreement with the radiologist's interpretation. Results discussed with patient all questions answered. Advised patient to utilize Tylenol as needed for discomfort as well as apply ice for 10- 15 minutes at a time throughout the day. Discussed with patient that she can watson tape to 3rd finger for support or comfort if needed. Will refer to Ortho for any ongoing symptoms. Return precautions discussed. Patient verbalized understanding of and agreement with plan. Differential Diagnosis Differential Diagnoses: The differential diagnosis associated with the presentation includes As per MDM. Independent Interpretation I performed an independent interpretation of an: Plain X-Ray Interpretation: No evidence of fracture of 2nd finger of right hand Radiology Impression Discussion of test interpretation with radiology: I have reviewed the radiologist's reading. Radiologist Impression: XR/XR finger RT min 2V IMPRESSION: Normal finger radiographs. External Record Review External record reviewed: Inpatient record, Office record and Outpatient record Discharge Plan Discharge Clinical Impression: Contusion of index finger Qualifiers: Encounter type: initial encounter Damage to nail status: without damage Laterality: right Qualified Code(s): S60.021A - Contusion of right index finger without damage to nail, initial encounter Patient Disposition: Home, Self-Care Instructions: Contusion in Adults (ED) Additional Instructions: You have been evaluated in the emergency department today for finger pain. Your evaluation did not find evidence of medical conditions requiring emergent intervention at this time. Please rest, ice, and elevate your finger, and resume normal activities as tolerated. We recommend you take 650mg Tylenol every 6 hours as needed for pain. Please schedule an appointment for follow-up with your primary care provider this week. Return to the emergency department if you experience worsening pain, numbness, tingling, change of color in your finger, or any other concerning symptoms. If your symptoms do not slowly improve over the next 1-2 weeks, please follow up with orthopedics. Prescriptions: No Action duloxetine 60 mg capsule,delayed release(DR/EC) 60 mg PO DAILY medroxyprogesterone 150 mg/mL suspension 150 mg IM [id number] ferrous sulfate 325 mg (65 mg iron) tablet 325 mg PO DAILY loratadine 10 mg capsule 10 mg PO DAILY acetaminophen 650 mg tablet extended release 1,300 mg PO DAILY Trulicity 0.75 mg/0.5 mL pen injector 0.75 mg subcut QWEEK Aimovig Autoinjector 140 mg/mL auto-injector subcut .qmonth fluticasone propionate [Flovent HFA] 110 mcg/actuation HFA aerosol inhaler 1 puff inhalation BID PRN furosemide 20 mg tablet 20 mg PO DAILY PRN sennosides [senna] 8.6 mg tablet 34.4 mg PO BID verapamil 40 mg tablet 40 mg PO DAILY PRN metformin 500 mg tablet 500 mg PO BID hydroxychloroquine 200 mg tablet 200 mg PO DAILY Qty: 60 2RF Referrals: [facility] [Provider Group]
== END 2022-12-20 17:47 | disposition home or self-care (01) ==
PROVIDERS: Emergency Provider Emergency Medicine; PCP Nurse Practitioner Family
DX: S60.021A Contusion of right index finger without damage to nail, initial encounter (principal); W23.1XXA Caught, crushed, jammed, or pinched between stationary objects, initial encounter; Y93.89 Activity, other specified; Y92.039 Unspecified place in apartment as the place of occurrence of the external cause; Y99.9 Unspecified external cause status
CPT/HCPCS: 73140; 99283; 99284

== ENCOUNTER 2023-07-25 16:12 | Outpatient (REF) | payer OTHER, SELFPAY ==
[2023-07-25 16:44] LABS: MANUAL DIFF FLAG NO
[2023-07-25 17:11] LABS: Basophils Absolute Auto 0.1 X10*3/uL (0.0-0.2); Basophils Percent Auto 0.5 % (0-2); Eosinophils Absolute Auto 0.2 X10*3/uL (0.0-0.4); Eosinophils Percent Auto 1.6 % (0-4); Hematocrit 40.3 % (37.0-47.0); Hemoglobin 12.6 g/dl (12.0-16.0); Imm Gran Abs Auto 0.07 X10*3/uL (0.00-0.03); Imm Gran Pct Auto 0.6 % (0.0-0.4); Lymphocytes Percent Auto 18.2 % (20-40); Mean Corpuscular HGB Conc 31.3 g/dl (31.0-35.0); Mean Corpuscular Hemoglobin 24.2 pg (27.0-33.0); Mean Corpuscular Volume 77.5 fL (80.0-98.0); Mean Platelet Volume 8.5 fL (9.4-12.3); Monocytes Absolute Auto 0.6 X10*3/uL (0.1-1.2); Monocytes Percent Auto 5.3 % (2-11); Neutrophils Absolute Auto 8.1 x10*3/uL (2.0-8.3); Neutrophils Percent Auto 73.8 % (45-73); Platelet Count 315 X10*3/uL (160-400)
[2023-07-25 17:13] LABS: Appearance Urine Cloudy; Color Urine Dark Yellow; Glucose Urine UA Negative (Negative); Leukocyte Esterase Urine Trace (Negative); Nitrite Urine Negative (Negative); PH 5.5 (5.0-9.0); Specific Gravity - Urine >= 1.030 (1.005-1.025); UMIC TRIGGER UA YES; Urine Blood Trace (Negative); Urine Ketones Trace mg/dL (Negative); Urine Protein Trace mg/dL (Neg-Trace)
[2023-07-25 17:41] LABS: Creatinine Urine 184.61 mg/dL; Microalbum/Creatinine Ratio Ur 10.2 ug/mg cr (<30); Protein/Creatinine Ratio, Ur 0.09 (<0.2); Total Protein Urine Random 16 mg/dL (<12)
[2023-07-25 17:42] LABS: Anion Gap 12 (12-20); Blood Urea Nitrogen 20 mg/dL (9-16); Calcium 9.5 mg/dL (8.4-10.2); Carbon Dioxide 25 mmol/L (22-29); Chloride 101 mmol/L (96-108); Estimated Glomerular Filt Rate > 60; Glucose Random 175 mg/dL (60-115); Sodium 134 mmol/L (135-145)
[2023-07-25 17:51] LABS: Bacteria Urine 3+ (None Seen); Hyaline Casts Urine 0-2 /LPF (0-2); WBC Urine 0-5 /HPF (0-5)
[2023-07-26 06:23] LABS: Parathyroid Hormone Intact 65.7 pg/mL (8.7-77.1)
[2023-07-26 12:23] LABS: Complement C3 160 mg/dL (83-193)
[2023-07-26 20:38] LABS: Anti DNA DS Antibody <1 IU/mL
[2023-07-30 00:08] LABS: VITAMIN D (1,25 OH) D3 32 pg/mL; Vit D (1,25-Dihydroxy) Total 32 pg/mL (18-72); Vitamin D (1,25 OH) D2 <8 pg/mL
[2023-07-31 11:09] LABS: Anti Nuclear Antibody Pattern Nuclear, Speckled; Anti Nuclear Antibody Screen POSITIVE (NEGATIVE)
== END 2023-07-25 16:13 | disposition home or self-care (01) ==
LOC: HO.LAB 16:12
PROVIDERS: Visit Provider Internal Medicine
DX: E11.22 Type 2 diabetes mellitus with diabetic chronic kidney disease (principal); D68.62 Lupus anticoagulant syndrome
CPT/HCPCS: 36415; 80048; 81001; 82043; 82570; 82652; 83970; 84156; 85025; 86038; 86039; 86160; 86225

== ENCOUNTER 2023-08-05 14:57 | Outpatient (AMB) | payer OTHER, SELFPAY ==
--- NOTE | 2023-08-05 15:00 | MHC.OFFVIS ---
Vital Signs 08/05/23 15:03 Height 5 ft 9 in Weight 440 lb 14.792 oz BMI 65.1 BP 122/70 Blood Pressure Location Rt brachial Position Sitting Pulse 108 H Pulse Source Pulse Oximeter Pulse Oximetry (%) 95 Oxygen Delivery Method Room Air Intake Visit Reasons: jessa+ve/cm Intake Note: Pt last seen in December, presents today for follow up. States she is always tired; reports abnormal UA with PCP, following with nephrology for hematuria. Tobacco Buyer Required: No Accompanied by: Self / Same As Patient Allergies aspirin Allergy (Unknown, Verified 08/05/23 15:09) Unknown clindamycin Allergy (Unknown, Verified 08/05/23 15:09) Unknown diazepam [From Valium] Allergy (Unknown, Verified 08/05/23 15:09) Unknown gabapentin [From Neurontin] Allergy (Unknown, Verified 08/05/23 15:09) Unknown hydroxychloroquine Allergy (Unknown, Verified 08/05/23 15:09) Unknown ibuprofen Allergy (Unknown, Verified 08/05/23 15:09) Unknown morphine Allergy (Unknown, Verified 08/05/23 15:09) Unknown naproxen Allergy (Unknown, Verified 08/05/23 15:09) Unknown Sulfa (Sulfonamide Antibiotics) Allergy (Unknown, Verified 08/05/23 15:09) Unknown sulfamethoxazole [From Bactrim] Allergy (Unknown, Verified 08/05/23 15:09) Unknown sumatriptan Allergy (Unknown, Verified 08/05/23 15:09) Unknown tramadol Allergy (Unknown, Verified 08/05/23 15:09) Unknown trimethoprim [From Bactrim] Allergy (Unknown, Verified 08/05/23 15:09) Unknown glipizide Adverse Reaction (Verified 08/05/23 15:12) Gastrointestinal Upset metformin high dose Adverse Reaction (Uncoded 08/05/23 15:12) Gastrointestinal Upset Medication List - Last Reconciled 08/05/23 by Shannan Arrieta MD acetaminophen ER 1,300 mg PO DAILY dulaglutide (Trulicity) 0.75 mg subcut QWEEK duloxetine 60 mg PO DAILY erenumab-aooe (Aimovig Autoinjector) mg subcut .qmonth ferrous sulfate 325 mg PO DAILY fluticasone propionate 110 mcg/actuation (Flovent HFA) 1 puff inhalation BID PRN furosemide 20 mg PO DAILY PRN hydroxychloroquine 200 mg PO DAILY loratadine 10 mg PO DAILY medroxyprogesterone 150 mg IM [id number] metformin 500 mg PO BID sennosides (senna) 34.4 mg PO BID verapamil 40 mg PO DAILY PRN HPI Comments Details: Patient returns for follow-up. She states that she feels generalized fatigue. She was recently evaluated by a inclusion teacher due to hematuria. She otherwise feels about the same overall. Initial history: This is a 41-year-old female presents for evaluation of multiple joint pain. She has a complex past medical history. 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 Patient walks with a cane for left leg weakness. She states that she has had diffuse pain for many years, she has had pain since she was a child. She had an spinal injection about 10 years ago without relief. She is currently on duloxetine for diffuse pain. She states that she was diagnosed with rheumatoid arthritis by Dr. Serrano in [place], she lost her follow-up appointment so she was unable to see her again. More recently she was diagnosed with lupus by her PCP. Patient states that she has morning stiffness of her hands and multiple joints in her body the last around 2 hours. She takes Tylenol with little relief. She also takes duloxetine for pain. She has rashes on her face that vary in severity. She is unaware of any other rashes. She is unaware of history of blood clots. She has never been . She has a maternal aunt with lupus and another maternal aunt with rheumatoid arthritis. [facility] Medical History Polyarthralgia Cardiac arrest Irregular periods Type 2 diabetes mellitus Morbid obesity Depressive disorder Fibromyalgia Abnormal Papanicolaou smear of cervix PTSD (post-traumatic stress disorder) Arthritis of both knees Surgical History Hx of dilation and curettage Family History Mother Diabetes Hypertension Multiple myeloma Father Diabetes Hypertension Heart disease Social History Alcohol intake: current Alcohol intake frequency: does not drink Patient Tobacco Use Status: Never used Tobacco e-Cigarette/Vaping Use: Never Used Female Reproductive History Menstrual Total pregnancies: 0 Review of Systems Const Reports fatigue and Reports weakness Musc Reports arthralgias and Reports stiffness Neuro Reports weakness Endo Reports fatigue Physical Exam Vital Signs: Last Vital Signs Pulse 108 H 08/05/23 15:03 BP 122/70 08/05/23 15:03 Pulse Ox 95 08/05/23 15:03 Oxygen Delivery Method Room Air 08/05/23 15:03 BMI result Body Mass Index 65.1 Const General: cooperative and healthy appearing Nutritional Appearance: obese morbidly obese Orientation/consciousness: patient oriented x3 Limitations: ambulation with walker HEENT Head: Yes normocephalic and Yes atraumatic Resp Effort & Inspection: normal respiratory effort and able to speak in complete sentences Auscultation: clear to auscultation bilaterally Cardio Rate: regular rate Rhythm: regular rhythm Neuro General: patient oriented x3 Extrem Other: No active synovitis Few fibromyalgia tender points Normal nailfold capillaroscopy Assessment & Plan Assessment & Plan (1) Undifferentiated connective tissue disease: Code(s): M35.9 - Systemic involvement of connective tissue, unspecified Category: Medical Plan: This is a 42-year-old female who presents for evaluation of diffuse joint pain for many years.? On exam she has a rash across her face, but it is not indurated. SLE and rheumatoid arthritis run on the maternal side of her family.? Labs show a positive JESSA with negative sub serologies, normal complements, no cytopenias. No proteinuria. She has significantly elevated inflammatory markers which can be related to obesity. Patient took hydroxychloroquine regularly for 3 months without any improvement. It was discontinued. Upon evaluation I do not see any signs suggestive of an autoimmune rheumatic disease that require a DMARD. Follow-up p.r.n. Plan I spent 16 minutes reviewing patient's chart, evaluating patient, counseling patient and documenting in the chart Coding Level of Care Code Est Pt Level 3 (98767) Diagnoses Undifferentiated connective tissue disease M35.9
[2023-08-05 15:03] VITALS: BP 122/70; PULSE 108; O2SAT 95; BMI 65.1
== END 2023-08-05 15:22 | disposition home or self-care (01) ==
PROVIDERS: PCP Nurse Practitioner Family; Visit Provider Student in an Organized Health Care Education/Training Program
DX: M35.89 Other specified systemic involvement of connective tissue (principal)
CPT/HCPCS: 99213

== ENCOUNTER → 2023-08-05 14:57 | Outpatient (BNVA) | payer OTHER, SELFPAY | PROVIDERS: PCP Nurse Practitioner Family; Visit Provider Student in an Organized Health Care Education/Training Program | DX: M35.9 Systemic involvement of connective tissue, unspecified (principal) | CPT/HCPCS: 99212 ==

== ENCOUNTER 2023-09-28 09:54 | Outpatient (REF) | payer OTHER, SELFPAY ==
[2023-09-28 10:09] LABS: MANUAL DIFF FLAG NO
[2023-09-28 11:08] LABS: Appearance Urine Cloudy; Color Urine Yellow; Glucose Urine UA >=1000 mg/dL (Negative); Leukocyte Esterase Urine Negative (Negative); Nitrite Urine Negative (Negative); PH 5.5 (5.0-9.0); Specific Gravity - Urine >= 1.030 (1.005-1.025); UMIC TRIGGER UA YES; Urine Blood Negative (Negative); Urine Ketones 15 mg/dL (Negative); Urine Protein Negative (Neg-Trace)
[2023-09-28 11:10] LABS: Basophils Absolute Auto 0.1 X10*3/uL (0.0-0.2); Basophils Percent Auto 0.5 % (0-2); Eosinophils Absolute Auto 0.1 X10*3/uL (0.0-0.4); Eosinophils Percent Auto 1.2 % (0-4); Hematocrit 41.4 % (37.0-47.0); Hemoglobin 12.5 g/dl (12.0-16.0); Imm Gran Abs Auto 0.14 X10*3/uL (0.00-0.03); Imm Gran Pct Auto 1.3 % (0.0-0.4); Lymphocytes Absolute Auto 1.6 X10*3/uL (1.2-4.9); Lymphocytes Percent Auto 15.4 % (20-40); Mean Corpuscular HGB Conc 30.2 g/dl (31.0-35.0); Mean Corpuscular Hemoglobin 23.9 pg (27.0-33.0); Mean Platelet Volume 8.8 fL (9.4-12.3); Monocytes Absolute Auto 0.5 X10*3/uL (0.1-1.2); Monocytes Percent Auto 4.2 % (2-11); Neutrophils Absolute Auto 8.2 x10*3/uL (2.0-8.3); Neutrophils Percent Auto 77.4 % (45-73); Platelet Count 361 X10*3/uL (160-400); Red Blood Count 5.24 X10*6/uL (4.20-5.50); Red Cell Distribution Width 16.3 % (11.0-16.0); White Blood Count 10.6 X10*3/uL (4.8-10.8)
[2023-09-28 11:24] LABS: Bacteria Urine 1+ (None Seen); Hyaline Casts Urine 0-2 /LPF (0-2); Other Crystals Urine Present; RBC Urine 0-2 /HPF (0-2); WBC Urine 0-5 /HPF (0-5)
[2023-09-28 11:41] LABS: Parathyroid Hormone Intact 58.5 pg/mL (8.7-77.1)
[2023-09-28 11:42] LABS: Creatinine Urine 178.62 mg/dL; Microalbum/Creatinine Ratio Ur 7.8 ug/mg cr (<30); Protein/Creatinine Ratio, Ur 0.07 (<0.2); Total Protein Urine Random 13 mg/dL (<12)
[2023-09-28 11:44] LABS: Anion Gap 13 (12-20); Blood Urea Nitrogen 16 mg/dL (9-16); Calcium 9.7 mg/dL (8.4-10.2); Carbon Dioxide 24 mmol/L (22-29); Chloride 106 mmol/L (96-108); Estimated Glomerular Filt Rate > 60; Glucose Random 174 mg/dL (60-115); Potassium 4.1 mmol/L (3.3-5.1); Sodium 139 mmol/L (135-145)
[2023-09-28 12:04] LABS: Vitamin D 25-OH Total 34.2 ng/mL (>30)
[2023-09-30 09:48] LABS: Complement C3 143 mg/dL (83-193)
[2023-09-30 22:19] LABS: Anti DNA DS Antibody <1 IU/mL
[2023-10-04 15:29] LABS: Anti Nuclear Antibody Pattern Nuclear, Speckled; Anti Nuclear Antibody Screen POSITIVE (NEGATIVE)
== END 2023-09-28 09:55 | disposition home or self-care (01) ==
LOC: HO.LAB 09:54
PROVIDERS: PCP Nurse Practitioner Family; Visit Provider Internal Medicine
DX: D68.62 Lupus anticoagulant syndrome (principal)
CPT/HCPCS: 36415; 80048; 81001; 82043; 82306; 82570; 83970; 84156; 85025; 86038; 86039; 86160; 86225

== ENCOUNTER 2023-10-13 12:50 | Inpatient (IN) | payer OTHER, SELFPAY ==
--- NOTE | ~2023-10-13 | CT_ITS ---
EXAMINATION: CT HEAD WITHOUT CONTRAST CT ANGIOGRAM HEAD CT ANGIOGRAM NECK CLINICAL INFORMATION: Left facial weakness. History of stroke. COMPARISON: None available. TECHNIQUE: Initial noncontrast emotional support teacher imaging of the head and neck was performed. Noncontrast head CT was also performed. Test bolus sequences followed by intravenous administration 70 mL of Omnipaque 350. Helical imaging was performed in the axial plane from the aortic arch to the skull vertex. Delayed postcontrast imaging of the head was also performed. The data was processed at the process safety engineering technologist's workstation for generation of MIP sequences. Angled MIPs and volume rendered reformatted images were also generated at an offline 3D workstation. Stenoses are assessed in accordance with NASCET criteria unless otherwise indicated. This CT examination was performed using dose optimization techniques as appropriate, variously including the following: *Automated exposure control. *Adjustment of mA and/or kV according to patient size (this includes techniques or standardized protocols for targeted exams where dose is matched to indication/reason for exam; i.e. extremities or head). *Use of iterative reconstruction technique. DLP: 2548 mGy-cm FINDINGS: CT Head: There is no evidence of acute intracranial hemorrhage or edematous territorial infarction. Luna-white matter differentiation is preserved. There is no abnormal attenuation within the brain parenchyma. The ventricles are normal in morphology and size. No evidence for obstructive hydrocephalus. No abnormal mass effect or midline shift. No extra-axial fluid collections. No pathologic intra-axial enhancement or regional oligemia. No acute soft tissue or osseous abnormalities. Mild mucosal thickening of the paranasal sinuses. The mastoid air cells and middle ear cavities are clear. CT Neck: The thyroid gland and remaining cervical soft tissues are within normal limits. Mild multilevel degenerative spondyloarthropathy of the cervical spine. Moderate degenerative disc disease at C5-C6. CT Upper Chest: The visualized lung apices and upper mediastinum are within normal limits. Neck CTA: Aortic Arch: Normal contour and caliber. Two vessel branching pattern of the arch with left common carotid artery arising from the brachiocephalic trunk. Great Vessel Origins: No significant stenosis of the branch origins. Right Common Carotid Artery: No focal stenosis or occlusion. Cervical Right Internal Carotid Artery: Normal opacification without focal stenosis or occlusion. Left Common Carotid Artery: No focal stenosis or occlusion. Cervical Left Internal Carotid Artery: Normal opacification without focal stenosis or occlusion. Cervical Right Vertebral Artery: Co-dominant. No focal stenosis or occlusion. Cervical Left Vertebral Artery: Co-dominant. No focal stenosis or occlusion. Brain CTA: Intracranial Internal Carotid Arteries: Mild calcific atherosclerotic disease of the intracranial internal carotid arteries without occlusion or flow-limiting stenosis. Right Anterior Cerebral Artery: Normal A1 segment. Normal opacification of the distal WALTER segments. Left Anterior Cerebral Artery: Normal A1 segment. Normal opacification of the distal WALTER segments. Anterior Communicating Artery: Normal. Right Middle Cerebral Artery: Normal M1 segment of the MCA without focal stenosis or occlusion. Normal arborization of the distal segments. Left Middle Cerebral Artery: Normal M1 segment of the MCA without focal stenosis or occlusion. Normal arborization of the distal segments. Right Vertebral Artery: Normal V4 segment. Normal opacification of the proximal segments of the posterior inferior cerebellar artery. Left Vertebral Artery: Normal V4 segment. Normal opacification of the proximal segments of the posterior inferior cerebellar artery. Basilar Artery: Normal without focal stenosis or occlusion. Normal appearance of the proximal superior cerebellar arteries. Right Posterior Cerebral Artery: Normal P1 segment. Normal opacification of the distal GAMING TABLE OPERATOR segments. Left Posterior Cerebral Artery: Normal P1 segment. Normal opacification of the distal GAMING TABLE OPERATOR segments. Right dominant transverse/sigmoid sinuses. The left transverse/sigmoid sinuses are hypoplastic. Otherwise, normal opacification of the superior sagittal, straight, transverse, and sigmoid sinuses. CT/CT head for stroke IMPRESSION: 1. No evidence of acute intracranial hemorrhage or edematous territorial infarction. 2. CTA of the head and neck without proximal occlusion or flow-limiting stenosis. This critical result was discussed with Dr. Banks at 13:20 on 10/13/2023 and it was ascertained that the content and urgency of the report was understood at the time of direct communication. Electronically signed by: Celso Rivers DO 10/13/2023 01:39 PM EDT
--- NOTE | ~2023-10-13 | MR_ITS ---
EXAMINATION: MR BRAIN WITHOUT CONTRAST CLINICAL INFORMATION: Question stroke. Facial droop. COMPARISON: Head CT from 10/13/2023. TECHNIQUE: Multiplanar, multisequence imaging of the brain was performed without contrast. FINDINGS: No diffusion abnormalities are identified to suggest an acute infarct. The ventricles are normal in size. No mass effect or midline shift is seen. No brain parenchymal signal abnormality is noted. No extra-axial fluid collections are seen. The brainstem and cerebellum are normal. The gradient refocused acquisition is normal. The craniovertebral junction, marrow signal, and midline structures are normal. The major intracranial flow voids at the level of the elim ira of [place] are preserved. The dural venous sinus flow voids are maintained. The mastoid air cells are well aerated. Mild aerosolized mucosal secretions visible in the left sphenoid sinus. MR/MR head/brain wo con IMPRESSION: No acute intracranial process. Normal MRI of the brain. Electronically signed by: Olvin Cervantes MD 10/15/2023 10:01 AM EDT
--- NOTE | ~2023-10-13 | CT_ITS ---
EXAMINATION: CT HEAD WITHOUT CONTRAST CT ANGIOGRAM HEAD CT ANGIOGRAM NECK CLINICAL INFORMATION: Left facial weakness. History of stroke. COMPARISON: None available. TECHNIQUE: Initial noncontrast material requirements planning manager imaging of the head and neck was performed. Noncontrast head CT was also performed. Test bolus sequences followed by intravenous administration 70 mL of Omnipaque 350. Helical imaging was performed in the axial plane from the aortic arch to the skull vertex. Delayed postcontrast imaging of the head was also performed. The data was processed at the medical technologist's workstation for generation of MIP sequences. Angled MIPs and volume rendered reformatted images were also generated at an offline 3D workstation. Stenoses are assessed in accordance with NASCET criteria unless otherwise indicated. This CT examination was performed using dose optimization techniques as appropriate, variously including the following: *Automated exposure control. *Adjustment of mA and/or kV according to patient size (this includes techniques or standardized protocols for targeted exams where dose is matched to indication/reason for exam; i.e. extremities or head). *Use of iterative reconstruction technique. DLP: 2548 mGy-cm FINDINGS: CT Head: There is no evidence of acute intracranial hemorrhage or edematous territorial infarction. Luna-white matter differentiation is preserved. There is no abnormal attenuation within the brain parenchyma. The ventricles are normal in morphology and size. No evidence for obstructive hydrocephalus. No abnormal mass effect or midline shift. No extra-axial fluid collections. No pathologic intra-axial enhancement or regional oligemia. No acute soft tissue or osseous abnormalities. Mild mucosal thickening of the paranasal sinuses. The mastoid air cells and middle ear cavities are clear. CT Neck: The thyroid gland and remaining cervical soft tissues are within normal limits. Mild multilevel degenerative spondyloarthropathy of the cervical spine. Moderate degenerative disc disease at C5-C6. CT Upper Chest: The visualized lung apices and upper mediastinum are within normal limits. Neck CTA: Aortic Arch: Normal contour and caliber. Two vessel branching pattern of the arch with left common carotid artery arising from the brachiocephalic trunk. Great Vessel Origins: No significant stenosis of the branch origins. Right Common Carotid Artery: No focal stenosis or occlusion. Cervical Right Internal Carotid Artery: Normal opacification without focal stenosis or occlusion. Left Common Carotid Artery: No focal stenosis or occlusion. Cervical Left Internal Carotid Artery: Normal opacification without focal stenosis or occlusion. Cervical Right Vertebral Artery: Co-dominant. No focal stenosis or occlusion. Cervical Left Vertebral Artery: Co-dominant. No focal stenosis or occlusion. Brain CTA: Intracranial Internal Carotid Arteries: Mild calcific atherosclerotic disease of the intracranial internal carotid arteries without occlusion or flow-limiting stenosis. Right Anterior Cerebral Artery: Normal A1 segment. Normal opacification of the distal WALTER segments. Left Anterior Cerebral Artery: Normal A1 segment. Normal opacification of the distal WALTER segments. Anterior Communicating Artery: Normal. Right Middle Cerebral Artery: Normal M1 segment of the MCA without focal stenosis or occlusion. Normal arborization of the distal segments. Left Middle Cerebral Artery: Normal M1 segment of the MCA without focal stenosis or occlusion. Normal arborization of the distal segments. Right Vertebral Artery: Normal V4 segment. Normal opacification of the proximal segments of the posterior inferior cerebellar artery. Left Vertebral Artery: Normal V4 segment. Normal opacification of the proximal segments of the posterior inferior cerebellar artery. Basilar Artery: Normal without focal stenosis or occlusion. Normal appearance of the proximal superior cerebellar arteries. Right Posterior Cerebral Artery: Normal P1 segment. Normal opacification of the distal OBSERVATORY DIRECTOR segments. Left Posterior Cerebral Artery: Normal P1 segment. Normal opacification of the distal OBSERVATORY DIRECTOR segments. Right dominant transverse/sigmoid sinuses. The left transverse/sigmoid sinuses are hypoplastic. Otherwise, normal opacification of the superior sagittal, straight, transverse, and sigmoid sinuses. CT/CT angio head neck stroke IMPRESSION: 1. No evidence of acute intracranial hemorrhage or edematous territorial infarction. 2. CTA of the head and neck without proximal occlusion or flow-limiting stenosis. This critical result was discussed with Dr. Banks at 13:20 on 10/13/2023 and it was ascertained that the content and urgency of the report was understood at the time of direct communication. Electronically signed by: Celso Rivers DO 10/13/2023 01:39 PM EDT
[2023-10-13 12:53] VITALS: BP 151/89; PULSE 98; RESP 20; TEMP 36.7; O2SAT 93; BMI 64.1
--- NOTE | 2023-10-13 12:53 | ED.NEUROSD ---
HPI - Neuro Symptoms/Deficit General Chief Complaint: Neuro Symptoms/Deficit Stated Complaint: l side numbness facial Time Seen by Provider: 10/13/23 13:12 Source: patient and family Mode of arrival: ambulatory Limitations: no limitations History of Present Illness ED Provider: DR. 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 Patient has a history of 7 CVAs in the past require thrombolysis last stroke was year ago. Otherwise patient declined any headache. Patient is allergic to aspirin do not take anti platelet medication. Related Data Home Medications ?Medication ?Instructions ?Recorded ?Confirmed duloxetine 60 mg capsule,delayed 60 mg PO DAILY 06/20/22 08/05/23 release ferrous sulfate 325 mg (65 mg 325 mg PO DAILY 06/20/22 08/05/23 iron) tablet loratadine 10 mg capsule 10 mg PO DAILY 06/20/22 08/05/23 medroxyprogesterone 150 mg/mL 150 mg IM [id number] 06/20/22 08/05/23 intramuscular suspension acetaminophen 650 mg 1,300 mg PO DAILY 09/19/22 08/05/23 tablet,extended release dulaglutide 0.75 mg/0.5 mL 0.75 mg subcut QWEEK 09/19/22 08/05/23 subcutaneous pen injector (Trulicity) erenumab-aooe 140 mg/mL mg subcut .qmonth 09/19/22 08/05/23 subcutaneous auto-injector (Aimovig Autoinjector) fluticasone propionate 110 1 puff inhalation BID PRN 09/19/22 08/05/23 mcg/actuation HFA aerosol inhaler (Flovent HFA) furosemide 20 mg tablet 20 mg PO DAILY PRN 09/19/22 08/05/23 metformin 500 mg tablet 500 mg PO BID 09/19/22 08/05/23 sennosides 8.6 mg tablet (senna) 34.4 mg PO BID constipation 09/19/22 08/05/23 verapamil 40 mg tablet 40 mg PO DAILY PRN 09/19/22 08/05/23 Previous Rx's ?Medication ?Instructions ?Recorded hydroxychloroquine 200 mg tablet 200 mg PO DAILY #60 tabs 09/19/22 Allergies Allergy/AdvReac Type Severity Reaction Status Date / Time aspirin Allergy Unknown Unknown Verified 10/13/23 12:53 clindamycin Allergy Unknown Unknown Verified 10/13/23 12:53 diazepam [From Valium] Allergy Unknown Unknown Verified 10/13/23 12:53 gabapentin [From Neurontin] Allergy Unknown Unknown Verified 10/13/23 12:53 hydroxychloroquine Allergy Unknown Unknown Verified 10/13/23 12:53 ibuprofen Allergy Unknown Unknown Verified 10/13/23 12:53 morphine Allergy Unknown Unknown Verified 10/13/23 12:53 naproxen Allergy Unknown Unknown Verified 10/13/23 12:53 Sulfa (Sulfonamide Allergy Unknown Unknown Verified 10/13/23 12:53 Antibiotics) sulfamethoxazole Allergy Unknown Unknown Verified 10/13/23 12:53 [From Bactrim] sumatriptan Allergy Unknown Unknown Verified 10/13/23 12:53 tramadol Allergy Unknown Unknown Verified 10/13/23 12:53 trimethoprim [From Bactrim] Allergy Unknown Unknown Verified 10/13/23 12:53 glipizide AdvReac Gastrointestinal Verified 10/13/23 12:53 Upset metformin high dose AdvReac Gastrointestinal Uncoded 08/05/23 15:12 Upset Review of Systems Review of Systems: All other systems are reviewed and are negative Constitutional: Reports as per HPI and Reports no additional constitutional complaints Eyes: Reports as per HPI and Reports no additional eye complaints Reports system reviewed and no additional complaints, except as documented Cardiovascular: Reports as per HPI and Reports no additional cardiovascular complaints Respiratory: Reports as per HPI and Reports no additional respiratory complaints Gastrointestinal: Reports as per HPI and Reports no additional gastrointestinal complaints Genitourinary: Reports no additional female genitourinary complaints Musculoskeletal: Reports no additional musculoskeletal complaints Skin/Breast: Reports system reviewed and no additional complaints, except as docu Psychiatric: Reports no additional psychiatric complaints Endocrine: Reports no additional endocrine complaints Hematologic/Lymphatic: Reports no additional hematologic/lymphatic complaints Allergic/Immunologic: Reports no additional allergic/immunologic complaints Reports system reviewed and no additional complaints, except as documented and Reports Abnormal speech present [facility] Past Medical History Medical History Polyarthralgia Cardiac arrest Irregular periods Type 2 diabetes mellitus Morbid obesity Depressive disorder Fibromyalgia Abnormal Papanicolaou smear of cervix PTSD (post-traumatic stress disorder) Arthritis of both knees Surgical History Hx of dilation and curettage Family History Family History Mother Diabetes Hypertension Multiple myeloma Father Diabetes Hypertension Heart disease Social History Social History Alcohol intake: current Alcohol intake frequency: does not drink Patient Tobacco Use Status: Never used Tobacco Smoked in Last 30 Days: No e-Cigarette/Vaping Use: Never Used Use of substances other than those prescribed or required for medical reasons: No Advance Directives: No Advance Directives Information Provided: No Do you have a plan to hurt others: No Plan Patient : No Physical Exam Vital Signs: Vital Signs: Last Vital Signs Temp 98.4 F 10/13/23 13:33 Pulse 86 10/13/23 13:33 Resp 16 10/13/23 13:33 BP 148/73 H 10/13/23 13:33 Pulse Ox 94 10/13/23 13:33 O2 Del Method Room Air 10/13/23 13:33 BMI result Body Mass Index 64.1 Vital signs have been reviewed and appear to be correct. Blood pressure elevated. Heart rate normal. Respiratory rate normal. Temperature normal. Oxygen saturation normal. Appearance: Alert. Oriented X3. No acute distress. Head: Normal external exam. Normocephalic. Atraumatic. No Alfred signs noted. No raccoon eyes noted Eyes: PERRLA. EOMI. Conjunctiva and sclera normal. Eyelids normal. ENT: TM's Normal. Pharynx normal. Uvula midline. Moist mucous membranes. No trismus noted. No drooling noted. No muffled voice noted. Neck: Normal inspection. Neck supple. FROM. No adenopathy. Thyroid Normal. No meningeal signs. No neck mass noted. CVS: Normal heart rate and rhythm. Heart sound normal. No murmurs noted. Pulses normal throughout. Respiratory: No respiratory distress. Painless inspiration. Breath sounds normal. No wheezes/rales/rhonchi noted. Chest nontender. No accessory muscle usage noted or decreased air movement noted. Abdomen: Soft and nontender. Bowel sounds normal in all 4 quadrants. No distention noted. No organomegaly noted. No visible injury noted. Back: No CVA tenderness. Full range of motion noted. Skin: Skin warm and dry. Normal skin color. Normal skin turgor. No rashes/lesions/lacerations noted. Extremities: No lower extremity edema. Extremities exhibit normal range of motion. Extremities nontender. Neuro: Oriented X 3. Cranial nerve exam: II-XII are grossly intact No motor deficit. No sensory deficit. Reflexes normal. Course Course Course Narrative: This is a Rapid Medical Exam performed in triage by Chanda Cannon PA-C. Full HPI, ROS and PE to be performed by primary ED provider. 43 yo F w/PMHx diabetes, morbid obesity, fibromyalgia, PTSD, CVA with left-sided deficits, presenting to the ED complaining left-sided facial numbness since 04:00, now with left-sided facial weakness since arriving to the ED. denies taking anticoagulation. Reports chronic LUE weakness PE: + left-sided facial droop appreciated. LUE weakness. Plan: Stroke protocol initiated. Dr. Banks aware. Reevaluation(s) Reevaluation #1: Case discussed with Dr. Somers, CT/CTA shows no acute pathology or acute LVO, patient is not taking antiplatelet medication due to severe allergy to aspirin. Plavix was ordered in the ED, patient is not a candidate for thrombolysis some of the symptoms started a week ago. Will hospitalize Time: 14:00 Medications Administered Discontinued Medications Generic Name Dose Route Start Last Admin Trade Name Freq PRN Reason Stop Dose Admin Iohexol 100 ml 10/13/23 13:22 10/13/23 13:22 Iohexol 350 Mg/Ml 100 Ml Infus..Btl IV 10/13/23 13:23 70 ml ONCE ONE Administration Medical Decision Making Differential Diagnosis Differential Diagnoses: The differential diagnosis associated with the presentation includes (Hemorrhagic stroke, ischemic stroke, migraine headache, severe anemia, electrolyte derangement.) Admission/Observation Consideration of admission/observation: Escalation of care including admission/observation considered Consult Healthcare Provider Management of the patient was discussed with: Hospitalist (Dr. Pena) and Clinical Review Nurse (Dr. Somers) Lab Data MDM Lab Attestation statement: I reviewed the patient's lab results. 10/13/23 13:09 10/13/23 13:09 Labs: Lab Results 10/13/23 10/13/23 10/13/23 Range/Units 13:09 13:09 13:26 WBC 9.9 (4.8-10.8) X10*3/uL RBC 5.28 (4.20-5.50) X10*6/uL Hgb 12.6 (12.0-16.0) g/dl Hct 40.9 (37.0-47.0) % MCV 77.5 L (80.0-98.0) fL MCH 23.9 L (27.0-33.0) pg MCHC 30.8 L (31.0-35.0) g/dl RDW 15.9 (11.0-16.0) % Plt Count 315 (160-400) X10*3/uL MPV 8.5 L (9.4-12.3) fL Immature Gran % (Auto) 0.6 H (0.0-0.4) % Neut % (Auto) 74.6 H (45-73) % Lymph % (Auto) 17.9 L (20-40) % Dickens % (Auto) 4.6 (2-11) % Eos % (Auto) 1.8 (0-4) % Baso % (Auto) 0.5 (0-2) % Lymph # (Auto) 1.8 (1.2-4.9) X10*3/uL Dickens # (Auto) 0.5 (0.1-1.2) X10*3/uL Eos # (Auto) 0.2 (0.0-0.4) X10*3/uL Baso # (Auto) 0.1 (0.0-0.2) X10*3/uL Abs Immat Gran (auto) 0.06 H (0.00-0.03) X10*3/uL Absolute Neuts (auto) 7.4 (2.0-8.3) x10*3/uL Absolute Nucleated RBC 0.000 (0.0-0.012) X10*3/uL Nucleated RBC % (auto) 0.0 (0.0-0.2) /100WBC Hold Purple Top SEE NOTE PT 12.5 (11.1-13.3) SEC INR 1.0 (0.9-1.1) APTT Cancelled 29.8 Sodium 138 (135-145) mmol/L Potassium 4.0 (3.3-5.1) mmol/L Chloride 105 (96-108) mmol/L Carbon Dioxide 23 (22-29) mmol/L Anion Gap 14 (12-20) BUN 20 H (9-16) mg/dL Creatinine 0.76 (0.5-1.4) mg/dL Estim Creat Clear Calc 174.8 Estimated GFR > 60 POC Glucose 128 H (60-115) mg/dL Random Glucose 152 H (60-115) mg/dL Calcium 9.6 (8.4-10.2) mg/dL Magnesium 2.3 (1.6-2.6) mg/dL Total Bilirubin 0.5 (0.0-1.0) mg/dL Direct Bilirubin 0.2 (0.0-0.5) mg/dL AST 8 (5-31) U/L ALT 11 (0-31) U/L Alkaline Phosphatase 86 (39-117) U/L Troponin I High Sens 3.3 (<3.5-17.0) ng/L Total Protein 7.8 (6.5-8.0) g/dL Albumin 3.8 (3.5-5.0) g/dL Independent Interpretation I performed an independent interpretation of an: CT Scan (Head/head and neck CTA:1. No evidence of acute intracranial hemorrhage or edematous territorial infarction. 2. CTA of the head and neck without proximal occlusion or flow-limiting stenosis. T) Radiology Impression Discussion of test interpretation with radiology: I have reviewed the radiologist's reading. NIH Stroke Scale Time: 13:25 Level of Consciousness: Alert Level of Consciousness Questions: Answers both questions correctly Level of Consciousness Commands: Performs both tasks correctly Best Gaze: Normal Visual: No visual loss Facial Palsy: Partial paralysis Motor Arm (Right): No drift Motor Arm (Left): No effort against gravity Motor Leg (Right): No drift Motor Leg (Left): Some effort against gravity Limb Ataxia: Absent Sensory: Mild to moderate sensory loss Best Language: No aphasia Dysarthia: Mild to moderate dysarthria Extinction and Inattention: No abnormality Score: 9 Critical Care Time Critical Care Time Critical Care Time: Yes Total Critical Care Time: 60 Attestation: The patient was critically ill with a high probability of imminent or life-threatening deterioration. I spent greater than 30 minutes of discontinuous time evaluating the patient, delivering critical care at the bedside, discussing evaluating data with consultants. Critical care time does not include time spent performing separately billable procedures or teaching. Time spent performing critical care was 60 minutes. Discharge Plan Discharge Clinical Impression: Cerebrovascular accident Patient Disposition: Admitted As Inpatient Prescriptions: No Action duloxetine 60 mg capsule,delayed release(DR/EC) 60 mg PO DAILY medroxyprogesterone 150 mg/mL suspension 150 mg IM [id number] ferrous sulfate 325 mg (65 mg iron) tablet 325 mg PO DAILY loratadine 10 mg capsule 10 mg PO DAILY acetaminophen 650 mg tablet extended release 1,300 mg PO DAILY Trulicity 0.75 mg/0.5 mL pen injector 0.75 mg subcut QWEEK Aimovig Autoinjector 140 mg/mL auto-injector subcut .qmonth fluticasone propionate [Flovent HFA] 110 mcg/actuation HFA aerosol inhaler 1 puff inhalation BID PRN furosemide 20 mg tablet 20 mg PO DAILY PRN sennosides [senna] 8.6 mg tablet 34.4 mg PO BID verapamil 40 mg tablet 40 mg PO DAILY PRN metformin 500 mg tablet 500 mg PO BID hydroxychloroquine 200 mg tablet 200 mg PO DAILY Qty: 60 2RF Print Language: Romanian
--- NOTE | 2023-10-13 12:54 | ECG_ITS ---
Test Reason : L SIDE WEAKNESS Blood Pressure : / mmHG Vent. Rate : 085 BPM Atrial Rate : 085 BPM P-R Int : 184 ms QRS Dur : 100 ms QT Int : 372 ms P-R-T Axes : 010 055 017 degrees QTc Int : 442 ms Normal sinus rhythm Low voltage QRS Borderline ECG No previous ECGs available Referred By: Chanda Cannon Electronically Signed By:CARINE GARCIA
--- NOTE | 2023-10-13 12:55 | PC.NURSE ---
pt immediately to CT upon ED arrival. 18gIV placed in the right AC - labs obtained/sent to lab. pt presents to the ED as a&ox4 w/ stable VS. pt has a PMH of 7 strokes w/ residual left sided deficits - last stroke being in october of 2022. chief complaint of ongoing increased left sided numbness/tingling/weakness in UE x 1 week. 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 LKW x 10/05/23 @ unknown time. sx gradually becoming worse throughout the weak. not on blood thinners. during assessment, left sided facial droop/left sided UE weakness noted. decreased strength present. 2:1 assist needed to ambulate from wheelchair to bariatric bed. stroke INR/POC/ekg performed by tech. pt repositioned to comfort in bed/resting in no apparent distress. no sob/wob noted. respirations even/unlabored. family members bedside for support. plan of care ongoing. call crain placed within reach.
--- NOTE | 2023-10-13 13:01 | MHC.EDTECH ---
This tech unable to perform EKG as patient was immediately taken to CT.
[2023-10-13 13:18] LABS: MANUAL DIFF FLAG NO
[2023-10-13 13:22] LABS: Basophils Absolute Auto 0.1 X10*3/uL (0.0-0.2); Basophils Percent Auto 0.5 % (0-2); Eosinophils Absolute Auto 0.2 X10*3/uL (0.0-0.4); Eosinophils Percent Auto 1.8 % (0-4); Hematocrit 40.9 % (37.0-47.0); Hemoglobin 12.6 g/dl (12.0-16.0); Imm Gran Abs Auto 0.06 X10*3/uL (0.00-0.03); Imm Gran Pct Auto 0.6 % (0.0-0.4); Lymphocytes Absolute Auto 1.8 X10*3/uL (1.2-4.9); Lymphocytes Percent Auto 17.9 % (20-40); Mean Corpuscular HGB Conc 30.8 g/dl (31.0-35.0); Mean Corpuscular Hemoglobin 23.9 pg (27.0-33.0); Mean Corpuscular Volume 77.5 fL (80.0-98.0); Mean Platelet Volume 8.5 fL (9.4-12.3); Monocytes Absolute Auto 0.5 X10*3/uL (0.1-1.2); Monocytes Percent Auto 4.6 % (2-11); Neutrophils Absolute Auto 7.4 x10*3/uL (2.0-8.3); Neutrophils Percent Auto 74.6 % (45-73); Platelet Count 315 X10*3/uL (160-400); Red Blood Count 5.28 X10*6/uL (4.20-5.50); Red Cell Distribution Width 15.9 % (11.0-16.0); White Blood Count 9.9 X10*3/uL (4.8-10.8)
[2023-10-13] MEDS: iohexoL 350 MG/ML 100 ML INFUS..BTL IV (13:22)
[2023-10-13 13:28] LABS: Prothrombin Time 12.5 SEC (11.1-13.3)
[2023-10-13 13:30] LABS: Partial Thromboplastin Time 29.8 SEC (26.0-36.8)
[2023-10-13 13:33] VITALS: BP 148/73; PULSE 86; RESP 16; TEMP 36.9; O2SAT 94
[2023-10-13 13:37] LABS: Glucose, Whole Blood 128 mg/dL (60-115)
[2023-10-13 13:51] LABS: Alanine Aminotransferase 11 U/L (0-31); Albumin Level 3.8 g/dL (3.5-5.0); Alkaline Phosphatase 86 U/L (39-117); Anion Gap 14 (12-20); Aspartate Amino Transferase 8 U/L (5-31); Bilirubin Direct 0.2 mg/dL (0.0-0.5); Bilirubin Total 0.5 mg/dL (0.0-1.0); Blood Urea Nitrogen 20 mg/dL (9-16); Calcium 9.6 mg/dL (8.4-10.2); Carbon Dioxide 23 mmol/L (22-29); Chloride 105 mmol/L (96-108); Creatinine Clr Calc Pharmacy 174.8; Estimated Glomerular Filt Rate > 60; Glucose Random 152 mg/dL (60-115); Magnesium 2.3 mg/dL (1.6-2.6); Sodium 138 mmol/L (135-145); Total Protein 7.8 g/dL (6.5-8.0)
[2023-10-13 13:58] LABS: Troponin-I High Sensitivity 3.3 ng/L (<3.5-17.0)
--- NOTE | 2023-10-13 14:01 | PC.NURSE ---
pt passed nursing swallow evaluation w/o any difficulty.
[2023-10-13 14:09] LABS: HCG Quantitative < 2 mIU/mL
[2023-10-13 14:10] LABS: Prothrombin Time Whole Bld POC 12.3 sec (11.1-13.5)
[2023-10-13] MEDS: Clopidogrel Bisulfate 75 MG TABLET PO (14:15)
--- NOTE | 2023-10-13 14:17 | PC.NURSE ---
pt medicated per provider order. pt swallowed pills whole w/ water w/ no complications. continues to rest comfortably in bed in no apparent distress. respirations remain even/unlabored.
--- NOTE | 2023-10-13 15:18 | P.HPHOSP_ITS ---
History of Present Illness Date of Service: 10/13/23 Chief Complaint: Facial droop 43-year-old woman presented to the ER with left arm numbness and weakness with left-sided facial numbness that started this morning. Patient has a history of multiple CVAs in the past and has been treated with thrombosed lytics 1 year ago. She reported that she has had this left-sided numbness for at least a couple of days and then the facial droop started today and her face also felt numb. She denied any recent illness, fever, chest pain, nausea vomiting diarrhea, recent travel, sick contacts. Does have a history of lupus and has plans to follow up with a specialist regarding this and her strokes in [place]. In the ER, head CTA showed no evidence of acute intracranial hemorrhage or edematous territorial infarction, CTA of the head and neck without proximal occlusion or flow-limiting stenosis. Labs within acceptable limits, vital signs stable. Patient will be admitted for further management and treatment of acute stroke versus TIA Review of Systems 2 Review of Systems: Denies any recent fever chills or decrease in appetite respiratory denies any shortness of breath or cough cardiovascular denied chest pain gastrointestinal denies any dysphagia abdominal pain nausea vomiting or diarrhea genitourinary denies any dysuria frequency or hematuria musculoskeletal denies any joint pain or swelling neuropsych denies any weakness or seizures all other systems reviewed are negative [facility] Medical History Polyarthralgia Cardiac arrest Irregular periods Type 2 diabetes mellitus Morbid obesity Depressive disorder Fibromyalgia Abnormal Papanicolaou smear of cervix PTSD (post-traumatic stress disorder) Arthritis of both knees Family History Mother Diabetes Hypertension Multiple myeloma Father Diabetes Hypertension Heart disease Surgical History Hx of dilation and curettage Social History Alcohol intake: current Alcohol intake frequency: does not drink Patient Tobacco Use Status: Never used Tobacco Smoked in Last 30 Days: No e-Cigarette/Vaping Use: Never Used Use of substances other than those prescribed or required for medical reasons: No Advance Directives: No Advance Directives Information Provided: No Do you have a plan to hurt others: No Plan Patient : No Meds Allergies Allergy/AdvReac Type Severity Reaction Status Date / Time aspirin Allergy Unknown Unknown Verified 10/13/23 12:53 clindamycin Allergy Unknown Unknown Verified 10/13/23 12:53 diazepam [From Valium] Allergy Unknown Unknown Verified 10/13/23 12:53 gabapentin [From Neurontin] Allergy Unknown Unknown Verified 10/13/23 12:53 hydroxychloroquine Allergy Unknown Unknown Verified 10/13/23 12:53 ibuprofen Allergy Unknown Unknown Verified 10/13/23 12:53 morphine Allergy Unknown Unknown Verified 10/13/23 12:53 naproxen Allergy Unknown Unknown Verified 10/13/23 12:53 Sulfa (Sulfonamide Allergy Unknown Unknown Verified 10/13/23 12:53 Antibiotics) sulfamethoxazole Allergy Unknown Unknown Verified 10/13/23 12:53 [From Bactrim] sumatriptan Allergy Unknown Unknown Verified 10/13/23 12:53 tramadol Allergy Unknown Unknown Verified 10/13/23 12:53 trimethoprim [From Bactrim] Allergy Unknown Unknown Verified 10/13/23 12:53 glipizide AdvReac Gastrointestinal Verified 10/13/23 12:53 Upset metformin high dose AdvReac Gastrointestinal Uncoded 08/05/23 15:12 Upset Active Medications: Current Medications Acetaminophen (Acetaminophen 325 Mg Tablet) 650 mg PO Q6H PRN PRN Reason: Pain, Mild (Pain Scale 1-3), fever or headache Calcium Carbonate (Calcium Carbonate 750 Mg Tab.Chew) 750 mg PO Q4H PRN PRN Reason: Heartburn Magnesium Hydroxide (Milk Of Magnesia 30 Ml Oral.Susp) 30 ml PO DAILY PRN PRN Reason: Constipation Melatonin (Melatonin 3 Mg Tablet) 6 mg PO BEDTIME PRN PRN Reason: Insomnia Home Medications ?Medication ?Instructions ?Recorded ?Confirmed ?Last Taken ?Type duloxetine 60 mg capsule,delayed 60 mg PO DAILY 06/20/22 10/13/23 10/13/23 History release ferrous sulfate 325 mg (65 mg 325 mg PO DAILY 06/20/22 10/13/23 10/13/23 History iron) tablet loratadine 10 mg capsule 10 mg PO DAILY PRN seasonal 06/20/22 10/13/23 Unknown History allergies medroxyprogesterone 150 mg/mL 150 mg IM [id number] 06/20/22 10/13/23 Unknown History intramuscular suspension acetaminophen 650 mg 1,300 mg PO DAILY 09/19/22 10/13/23 10/13/23 History tablet,extended release dulaglutide 0.75 mg/0.5 mL 0.75 mg subcut MO 09/19/22 10/13/23 10/07/23 History subcutaneous pen injector (Trulicity) erenumab-aooe 140 mg/mL 140 mg subcut QMONTH 09/19/22 10/13/23 10/13/23 History subcutaneous auto-injector (Aimovig Autoinjector) furosemide 20 mg tablet 20 mg PO DAILY PRN ankle swelling 09/19/22 10/13/23 Unknown History metformin 500 mg tablet 500 mg PO DAILY 09/19/22 10/13/23 10/13/23 History sennosides 8.6 mg tablet (senna) 17.2 mg PO DAILY constipation 09/19/22 10/13/23 10/13/23 History albuterol sulfate 90 mcg/actuation 3 puff inhalation DAILY PRN 10/13/23 10/13/23 Unknown History aerosol inhaler Shortness Of Breath Or Wheezing empagliflozin 10 mg tablet 10 mg PO DAILY 10/13/23 10/13/23 10/13/23 History (Jardiance) fluticasone propionate 110 3 puff inhalation DAILY PRN 10/13/23 10/13/23 Unknown History mcg/actuation HFA aerosol inhaler Shortness Of Breath Or Wheezing glipizide 5 mg tablet 5 mg PO BID 10/13/23 10/13/23 10/13/23 History insulin glargine 100 unit/mL (3 20 unit subcut BEDTIME 10/13/23 10/13/23 Unknown History mL) subcutaneous pen (Lantus Solostar U-100 Insulin) Physical Exam 2 Vital Signs and Narrative: Vital Signs: Last Vital Signs Temp 98.4 F 10/13/23 13:33 Pulse 86 10/13/23 13:33 Resp 16 10/13/23 13:33 BP 148/73 H 10/13/23 13:33 Pulse Ox 94 10/13/23 13:33 O2 Del Method Room Air 10/13/23 13:33 BMI result Body Mass Index 64.1 Appearing in no acute distress head is normocephalic atraumatic eyes pupils are PERRLA sclera is anicteric mouth throat mucous membranes are intact and moist neck is supple no lymphadenopathy, no JVD noted lung sounds are clear to auscultation heart regular rate rhythm, clear S1, S2 positive bowel sounds, abdomen is soft, nontender neuro patient is alert x3, no focal deficits Results Labs 10/13/23 13:09 10/13/23 15:43 Labs: Laboratory Results - last 24 hr 10/13/23 10/13/23 10/13/23 13:09 13:09 13:25 MCV 77.5 L MCH 23.9 L MCHC 30.8 L RDW 15.9 Plt Count 315 MPV 8.5 L Immature Gran % (Auto) 0.6 H Neut % (Auto) 74.6 H Lymph % (Auto) 17.9 L [place] % (Auto) 4.6 Eos % (Auto) 1.8 Baso % (Auto) 0.5 Lymph # (Auto) 1.8 [place] # (Auto) 0.5 Eos # (Auto) 0.2 Baso # (Auto) 0.1 Abs Immat Gran (auto) 0.06 H Absolute Neuts (auto) 7.4 Absolute Nucleated RBC 0.000 Nucleated RBC % (auto) 0.0 Hold Purple Top SEE NOTE PT 12.5 Whole Blood PT 12.3 INR 1.0 Whole Blood INR 1.0 APTT Cancelled 29.8 Anion Gap 14 Estim Creat Clear Calc 174.8 Estimated GFR > 60 POC Glucose Random Glucose 152 H Calcium 9.6 Magnesium 2.3 Total Bilirubin 0.5 Direct Bilirubin 0.2 AST 8 ALT 11 Alkaline Phosphatase 86 Troponin I High Sens 3.3 Total Protein 7.8 Albumin 3.8 Beta HCG, Quant < 2 10/13/23 13:26 MCV MCH MCHC RDW Plt Count MPV Immature Gran % (Auto) Neut % (Auto) Lymph % (Auto) [place] % (Auto) Eos % (Auto) Baso % (Auto) Lymph # (Auto) [place] # (Auto) Eos # (Auto) Baso # (Auto) Abs Immat Gran (auto) Absolute Neuts (auto) Absolute Nucleated RBC Nucleated RBC % (auto) Hold Purple Top PT Whole Blood PT INR Whole Blood INR APTT Anion Gap Estim Creat Clear Calc Estimated GFR POC Glucose 128 H Random Glucose Calcium Magnesium Total Bilirubin Direct Bilirubin AST ALT Alkaline Phosphatase Troponin I High Sens Total Protein Albumin Beta HCG, Quant Imaging Radiologist's Impressions: Impressions Head CT 10/13/23 12:54 IMPRESSION: 1. No evidence of acute intracranial hemorrhage or edematous territorial infarction. 2. CTA of the head and neck without proximal occlusion or flow-limiting stenosis. This critical result was discussed with Dr. Banks at 13:20 on 10/13/2023 and it was ascertained that the content and urgency of the report was understood at the time of direct communication. Electronically signed by: Celso Rivers DO 10/13/2023 01:39 PM EDT RP Head/Neck CTA 10/13/23 13:07 IMPRESSION: 1. No evidence of acute intracranial hemorrhage or edematous territorial infarction. 2. CTA of the head and neck without proximal occlusion or flow-limiting stenosis. This critical result was discussed with Dr. Banks at 13:20 on 10/13/2023 and it was ascertained that the content and urgency of the report was understood at the time of direct communication. Electronically signed by: Celso Rivers DO 10/13/2023 01:39 PM EDT RP Assessment and Plan (1) Cerebrovascular accident: Status: Acute Plan 43 year old women admitted with possible stroke vs TIA with history of lupus and multiple strokes in the past. Stroke vs TIA Hx of multiple strokes Head CTA Neurology consultation continue plavix and statin monitor on telemetry Hypertension Stable blood pressure continue furosemide Diabetes mellitus type 2 Sliding scale, Lantus, glipizide and metformin Iron-deficiency anemia Continue iron supplementation Mental health Continue home medications super morbid obesity. BMI 64.1 Discussed importance of weight management as this may be contributing to worsening of other comorbidities DVT prophylaxis with Lovenox Full code Quality Stroke Does the patient have a stroke diagnosis?: No VTE Prior VTE?: No VTE Risk Level:: Medical - moderate - high VTE Device Contraindication: Treatment Not Indicated VTE Drug Contraindication: N/A - Med Ordered
[2023-10-13 16:00] VITALS: BP 144/65; PULSE 85; RESP 17; TEMP 36.6; O2SAT 97
[2023-10-13 16:03] LABS: Anion Gap 14 (12-20); Blood Urea Nitrogen 19 mg/dL (9-16); Calcium 9.4 mg/dL (8.4-10.2); Carbon Dioxide 25 mmol/L (22-29); Chloride 104 mmol/L (96-108); Creatinine Clr Calc Pharmacy 187.1; Estimated Glomerular Filt Rate > 60; Glucose Random 91 mg/dL (60-115); Potassium 3.8 mmol/L (3.3-5.1); Sodium 139 mmol/L (135-145)
--- NOTE | 2023-10-13 16:27 | PHA.MEDREC ---
Addendum entered by Armando Turpin [facility] 10/13/23 16:45: Med rec checked by [facility] Original Note: Pharmacy Consult ? Medication Reconciliation Pharmacy has completed the medication reconciliation. Spoke with patient and family to confirm medications. They brought in a list from home and we went over it together. She had her Aimovig injection this morning. She is due for her medroxyprogesterone this Tuesday 10/17. Her trulicity is every Saturday and had it last Saturday. No claims for metformin, she states she takes it once daily and has a bottle of it at home. No claims for prn lasix either but says she has it as well. Will keep on med rec. [facility] pharmacy reports she had one prescription for each last year but never filled it. Will let know. She uses Flovent prn. She confirmed Lantus is now 20 units at bedtime. She has scopolamine patches at home but has not used them since they were prescribed for her vacation, leaving off of med rec. She took her medications this morning.
[2023-10-13 20:00] VITALS: BP 143/80; PULSE 86; RESP 18; TEMP 36.2; O2SAT 94
[2023-10-13 20:38] LABS: Glucose, Whole Blood 132 mg/dL (60-115)
[2023-10-13 23:59] VITALS: BP 125/63; PULSE 96; RESP 18; TEMP 36; O2SAT 94
[2023-10-14 04:00] VITALS: BP 155/70; PULSE 94; RESP 18; TEMP 36; O2SAT 96
[2023-10-14 07:10] LABS: MANUAL DIFF FLAG NO
[2023-10-14 07:12] LABS: Basophils Percent Auto 0.4 % (0-2); Eosinophils Absolute Auto 0.2 X10*3/uL (0.0-0.4); Eosinophils Percent Auto 1.8 % (0-4); Hematocrit 38.4 % (37.0-47.0); Hemoglobin 11.9 g/dl (12.0-16.0); Imm Gran Abs Auto 0.07 X10*3/uL (0.00-0.03); Imm Gran Pct Auto 0.7 % (0.0-0.4); Lymphocytes Absolute Auto 1.1 X10*3/uL (1.2-4.9); Lymphocytes Percent Auto 11.3 % (20-40); Mean Corpuscular Volume 77.4 fL (80.0-98.0); Mean Platelet Volume 8.6 fL (9.4-12.3); Monocytes Absolute Auto 0.6 X10*3/uL (0.1-1.2); Monocytes Percent Auto 5.7 % (2-11); Neutrophils Absolute Auto 7.9 x10*3/uL (2.0-8.3); Neutrophils Percent Auto 80.1 % (45-73); Platelet Count 296 X10*3/uL (160-400); Red Blood Count 4.96 X10*6/uL (4.20-5.50); Red Cell Distribution Width 15.9 % (11.0-16.0); White Blood Count 9.8 X10*3/uL (4.8-10.8)
[2023-10-14 07:28] LABS: Cholesterol 139 mg/dL (<200); HDL Cholesterol 33 mg/dL (>40); LDL Cholesterol Calculated 92 mg/dL (<100); Triglycerides 71 mg/dL (<150)
[2023-10-14 07:33] LABS: Glucose, Whole Blood 146 mg/dL (60-115)
[2023-10-14 07:45] VITALS: BP 132/69; PULSE 94; RESP 20; TEMP 36.1; O2SAT 95
[2023-10-14] MEDS: Sennosides 8.6 MG TABLET 17.2 MG PO (09:02)
[2023-10-14] MEDS: Ferrous Sulfate 324 MG TABLET.DR PO (09:02)
[2023-10-14] MEDS: metFORMIN HCl 500 MG TABLET PO (09:02)
[2023-10-14] MEDS: DULoxetine HCl 60 MG CAPSULE.DR PO (09:02)
[2023-10-14] MEDS: Empagliflozin 10 MG TABLET PO (09:02)
--- NOTE | 2023-10-14 10:40 | MHC.CM.PN ---
IMM 10/13. Pt lives at home with her aunt/EKG MANAGER, she receives 45.5 EKG MANAGER hours/week, uses a rollater walker and a wheelchair. Pts aunt will transport her home. Pts aunt is her HCP, she will bring in a copy tomorrow. PCP: Dr. Parish Aguilera
[2023-10-14 10:59] LABS: Glucose, Whole Blood 148 mg/dL (60-115)
[2023-10-14 11:24] VITALS: BP 136/74; PULSE 89; RESP 20; TEMP 36.1; O2SAT 94
--- NOTE | 2023-10-14 11:33 | PM.NEUROCN ---
History of Present Illness Data of Consult Service Date: 10/14/23 Primary Care Provider: Parish Aguilera MD HPI Reason for consult: Left hemiparesis 43 years old woman who provided her own history stating that she suffered from lupus and many years ago she had a stroke causing severe left-sided weakness after which she was in rehab for a while. She said that after that she had multiple strokes causing worsening of left-sided weakness. He usually followed [facility] neurology and was living in [place]. After few days of her symptoms yesterday she decided to go to emergency room and her daughter drove her to [facility] but apparently there was some construction there and she brought her to this hospital. There was no evidence of any recent severe headache or seizure. Review of Systems Review of Systems: No recent cold or flu-like illness PMFSH Past Medical History Medical History Polyarthralgia Cardiac arrest Irregular periods Type 2 diabetes mellitus Morbid obesity Depressive disorder Fibromyalgia Abnormal Papanicolaou smear of cervix PTSD (post-traumatic stress disorder) Arthritis of both knees Family History Family History Mother Diabetes Hypertension Multiple myeloma Father Diabetes Hypertension Heart disease Surgical History Surgical History Hx of dilation and curettage Social History Social History Alcohol intake: current Alcohol intake frequency: does not drink Patient Tobacco Use Status: Never used Tobacco e-Cigarette/Vaping Use: Never Used service: No Meds Allergies Allergy/AdvReac Type Severity Reaction Status Date / Time aspirin Allergy Unknown Unknown Verified 10/13/23 12:53 clindamycin Allergy Unknown Unknown Verified 10/13/23 12:53 diazepam [From Valium] Allergy Unknown Unknown Verified 10/13/23 12:53 gabapentin [From Neurontin] Allergy Unknown Unknown Verified 10/13/23 12:53 hydroxychloroquine Allergy Unknown Unknown Verified 10/13/23 12:53 ibuprofen Allergy Unknown Unknown Verified 10/13/23 12:53 morphine Allergy Unknown Unknown Verified 10/13/23 12:53 naproxen Allergy Unknown Unknown Verified 10/13/23 12:53 Sulfa (Sulfonamide Allergy Unknown Unknown Verified 10/13/23 12:53 Antibiotics) sulfamethoxazole Allergy Unknown Unknown Verified 10/13/23 12:53 [From Bactrim] sumatriptan Allergy Unknown Unknown Verified 10/13/23 12:53 tramadol Allergy Unknown Unknown Verified 10/13/23 12:53 trimethoprim [From Bactrim] Allergy Unknown Unknown Verified 10/13/23 12:53 glipizide AdvReac Gastrointestinal Verified 10/13/23 12:53 Upset metformin high dose AdvReac Gastrointestinal Uncoded 08/05/23 15:12 Upset Active Medications: Current Medications Acetaminophen (Acetaminophen 325 Mg Tablet) 650 mg PO Q6H PRN PRN Reason: Pain, Mild (Pain Scale 1-3), fever or headache Albuterol Sulfate (Albuterol Sulfate 90 Mcg 8 Gm Inhaler) 3 puff INHALE DAILY PRN PRN Reason: Shortness Of Breath Or Wheezing Atorvastatin Calcium (Atorvastatin Calcium 40 Mg Tablet) 40 mg PO BEDTIME [facility] Calcium Carbonate (Calcium Carbonate 750 Mg Tab.Chew) 750 mg PO Q4H PRN PRN Reason: Heartburn Clopidogrel Bisulfate (Clopidogrel Bisulfate 75 Mg Tablet) 75 mg PO DAILY [facility] Duloxetine HCl (Duloxetine Hcl 60 Mg Capsule.) 60 mg PO DAILY [facility] Last Admin: 10/14/23 09:02 Dose: 60 mg Empagliflozin (Empagliflozin 10 Mg Tablet) 10 mg PO DAILY [facility] Last Admin: 10/14/23 09:02 Dose: 10 mg Ferrous Sulfate (Ferrous Sulfate 324 Mg Tablet.) 324 mg PO DAILY [facility] Last Admin: 10/14/23 09:02 Dose: 324 mg Furosemide (Furosemide 20 Mg Tablet) 20 mg PO DAILY PRN; Protocol PRN Reason: ankle swelling Glucose (Glucose Gel 15 Gm Gel..Gram.) 15 gm PO Q15M PRN; Protocol PRN Reason: per Hypoglycemia Standing Ord. Dextrose (D10) 250 mls @ 750 mls/hr IV Q15M PRN; Protocol PRN Reason: per Hypoglycemia Standing Ord. Insulin Glargine (Insulin Glargine,Hum.Rec.Anlog 100 Unit/Ml 10 Ml Vial) 20 unit SUBCUT BEDTIME [facility] Last Admin: 10/13/23 21:43 Dose: Not Given Insulin Human Lispro (Insulin Lispro 100 Unit/Ml 3 Ml Vial) 0 unit SUBCUT QIDACHS [facility]; Protocol Last Admin: 10/14/23 10:57 Dose: Not Given Magnesium Hydroxide (Milk Of Magnesia 30 Ml Oral.Susp) 30 ml PO DAILY PRN PRN Reason: Constipation Melatonin (Melatonin 3 Mg Tablet) 6 mg PO BEDTIME PRN PRN Reason: Insomnia Metformin HCl (Metformin Hcl 500 Mg Tablet) 500 mg PO DAILY [facility] Last Admin: 10/14/23 09:02 Dose: 500 mg Senna (Sennosides 8.6 Mg Tablet) 17.2 mg PO DAILY [facility] Last Admin: 10/14/23 09:02 Dose: 17.2 mg Home Medications ?Medication ?Instructions ?Recorded ?Confirmed ?Last Taken ?Type duloxetine 60 mg capsule,delayed 60 mg PO DAILY 06/20/22 10/13/23 10/13/23 History release ferrous sulfate 325 mg (65 mg 325 mg PO DAILY 06/20/22 10/13/23 10/13/23 History iron) tablet loratadine 10 mg capsule 10 mg PO DAILY PRN seasonal 06/20/22 10/13/23 Unknown History allergies medroxyprogesterone 150 mg/mL 150 mg IM [id number] 06/20/22 10/13/23 Unknown History intramuscular suspension acetaminophen 650 mg 1,300 mg PO DAILY 09/19/22 10/13/23 10/13/23 History tablet,extended release dulaglutide 0.75 mg/0.5 mL 0.75 mg subcut MO 09/19/22 10/13/23 10/07/23 History subcutaneous pen injector (Trulicity) erenumab-aooe 140 mg/mL 140 mg subcut QMONTH 09/19/22 10/13/23 10/13/23 History subcutaneous auto-injector (Aimovig Autoinjector) furosemide 20 mg tablet 20 mg PO DAILY PRN ankle swelling 09/19/22 10/13/23 Unknown History metformin 500 mg tablet 500 mg PO DAILY 09/19/22 10/13/23 10/13/23 History sennosides 8.6 mg tablet (senna) 17.2 mg PO DAILY constipation 09/19/22 10/13/23 10/13/23 History albuterol sulfate 90 mcg/actuation 3 puff inhalation DAILY PRN 10/13/23 10/13/23 Unknown History aerosol inhaler Shortness Of Breath Or Wheezing empagliflozin 10 mg tablet 10 mg PO DAILY 10/13/23 10/13/23 10/13/23 History (Jardiance) fluticasone propionate 110 3 puff inhalation DAILY PRN 10/13/23 10/13/23 Unknown History mcg/actuation HFA aerosol inhaler Shortness Of Breath Or Wheezing glipizide 5 mg tablet 5 mg PO BID 10/13/23 10/13/23 10/13/23 History insulin glargine 100 unit/mL (3 20 unit subcut BEDTIME 10/13/23 10/13/23 Unknown History mL) subcutaneous pen (Lantus Solostar U-100 Insulin) Physical Exam Vital Signs: Vital Signs: Last Vital Signs Temp 97 F 10/14/23 11:24 Pulse 89 10/14/23 11:24 Resp 20 10/14/23 11:24 BP 136/74 10/14/23 11:24 Pulse Ox 94 10/14/23 11:24 O2 Del Method Room Air 10/14/23 11:24 BMI result Body Mass Index 64.1 Neuro: Other: She is alert and awake with normal spontaneity of speech fluency comprehension and affect. There is mild left-sided facial weakness. She was able to lift her left leg against gravity and also left hand but just barely. Plantars were flexors. With double simultaneous visual stimulus, she did not perceive on the left side. Results Labs 10/14/23 06:45 10/13/23 15:43 Labs: Short CBC 10/13/23 10/14/23 Range/Units 13:09 06:45 WBC 9.9 9.8 (4.8-10.8) X10*3/uL Hgb 12.6 11.9 L (12.0-16.0) g/dl Hct 40.9 38.4 (37.0-47.0) % Plt Count 315 296 (160-400) X10*3/uL BMP 10/13/23 10/13/23 13:09 15:43 Sodium 138 139 Potassium 4.0 3.8 Chloride 105 104 Carbon Dioxide 23 25 BUN 20 H 19 H Creatinine 0.76 0.71 Calcium 9.6 9.4 Liver Function 10/13/23 Range/Units 13:09 Total Bilirubin 0.5 (0.0-1.0) mg/dL Direct Bilirubin 0.2 (0.0-0.5) mg/dL AST 8 (5-31) U/L ALT 11 (0-31) U/L Alkaline Phosphatase 86 (39-117) U/L Albumin 3.8 (3.5-5.0) g/dL Head CT and CTA of brain and neck did not reveal any significant acute or chronic pathology. Assessment and Plan (1) Left hemiparesis: Status: Acute 43 years old woman with underlying diagnosis of lupus reported that many years ago she had left hemiparesis from a stroke and then multiple strokes afterwards. According to documentation, apparently she has been treated with thrombolytic 1 time. She came to hospital with few days of worsening of left-sided weakness. On examination she has left hemiparesis but there is some atypical feature of this weakness. Her imaging with CT scan did not reveal any significant pathology. Etiology of left hemiparesis at this time is unclear. My recommendation is to obtain a noncontrast MRI of brain 1st to see if there is any acute or chronic pathology explaining her left-sided weakness. In the meantime baby aspirin and blood pressure control is recommended Procedures Date of Service Date of Service: 10/14/23
--- NOTE | 2023-10-14 13:33 | P.PNIM_ITS ---
Subjective Subjective Date of Service: 10/14/23 Review of Systems Follow up left sided weakness and facial droop still with some numbness to left arm and facial droop Physical Exam 2 Vital Signs: Vital Signs: Last Vital Signs Temp 97 F 10/14/23 11:24 Pulse 89 10/14/23 11:24 Resp 20 10/14/23 11:24 BP 136/74 10/14/23 11:24 Pulse Ox 94 10/14/23 11:24 O2 Del Method Room Air 10/14/23 11:24 BMI result Body Mass Index 64.1 Appearing in no acute distress lung sounds are clear to auscultation heart regular rate rhythm, clear S1, S2 positive bowel sounds, abdomen is soft, nontender neuro patient is alert x3, Left sided facial droop with Left arm weakness 2/5 Objective Data Active Medications Acetaminophen (Acetaminophen 325 Mg Tablet) 650 mg PO Q6H PRN PRN Reason: Pain, Mild (Pain Scale 1-3), fever or headache Albuterol Sulfate (Albuterol Sulfate 90 Mcg 8 Gm Inhaler) 3 puff INHALE DAILY PRN PRN Reason: Shortness Of Breath Or Wheezing Atorvastatin Calcium (Atorvastatin Calcium 40 Mg Tablet) 40 mg PO BEDTIME [facility] Calcium Carbonate (Calcium Carbonate 750 Mg Tab.Chew) 750 mg PO Q4H PRN PRN Reason: Heartburn Clopidogrel Bisulfate (Clopidogrel Bisulfate 75 Mg Tablet) 75 mg PO DAILY [facility] Duloxetine HCl (Duloxetine Hcl 60 Mg Capsule.) 60 mg PO DAILY [facility] Last Admin: 10/14/23 09:02 Dose: 60 mg Documented By: CARLOS Empagliflozin (Empagliflozin 10 Mg Tablet) 10 mg PO DAILY [facility] Last Admin: 10/14/23 09:02 Dose: 10 mg Documented By: CARLOS Ferrous Sulfate (Ferrous Sulfate 324 Mg Tablet.) 324 mg PO DAILY [facility] Last Admin: 10/14/23 09:02 Dose: 324 mg Documented By: CARLOS Furosemide (Furosemide 20 Mg Tablet) 20 mg PO DAILY PRN; Protocol PRN Reason: ankle swelling Glucose (Glucose Gel 15 Gm Gel..Gram.) 15 gm PO Q15M PRN; Protocol PRN Reason: per Hypoglycemia Standing Ord. Dextrose (D10) 250 mls @ 750 mls/hr IV Q15M PRN; Protocol PRN Reason: per Hypoglycemia Standing Ord. Insulin Glargine (Insulin Glargine,Hum.Rec.Anlog 100 Unit/Ml 10 Ml Vial) 20 unit SUBCUT BEDTIME [facility] Last Admin: 10/13/23 21:43 Dose: Not Given Documented By: SINGH Non-Admin Reason: pt reports having no appetite Insulin Human Lispro (Insulin Lispro 100 Unit/Ml 3 Ml Vial) 0 unit SUBCUT QIDACHS [facility]; Protocol Last Admin: 10/14/23 10:57 Dose: Not Given Documented By: CARLOS Non-Admin Reason: poc oor Magnesium Hydroxide (Milk Of Magnesia 30 Ml Oral.Susp) 30 ml PO DAILY PRN PRN Reason: Constipation Melatonin (Melatonin 3 Mg Tablet) 6 mg PO BEDTIME PRN PRN Reason: Insomnia Metformin HCl (Metformin Hcl 500 Mg Tablet) 500 mg PO DAILY [facility] Last Admin: 10/14/23 09:02 Dose: 500 mg Documented By: CARLOS Senna (Sennosides 8.6 Mg Tablet) 17.2 mg PO DAILY [facility] Last Admin: 10/14/23 09:02 Dose: 17.2 mg Documented By: CARLOS Labs 10/14/23 06:45 10/13/23 15:43 Labs: Laboratory Results - last 24 hr 10/13/23 10/13/23 10/13/23 13:09 13:25 13:26 MCV MCH MCHC RDW Plt Count MPV Immature Gran % (Auto) Neut % (Auto) Lymph % (Auto) Josephine % (Auto) Eos % (Auto) Baso % (Auto) Lymph # (Auto) Josephine # (Auto) Eos # (Auto) Baso # (Auto) Abs Immat Gran (auto) Absolute Neuts (auto) Absolute Nucleated RBC Nucleated RBC % (auto) Whole Blood PT 12.3 Whole Blood INR 1.0 Anion Gap 14 Estim Creat Clear Calc 174.8 Estimated GFR > 60 POC Glucose 128 H Random Glucose 152 H Calcium 9.6 Magnesium 2.3 Total Bilirubin 0.5 Direct Bilirubin 0.2 AST 8 ALT 11 Alkaline Phosphatase 86 Troponin I High Sens 3.3 Total Protein 7.8 Albumin 3.8 Triglycerides Cholesterol LDL Cholesterol, Calc HDL Cholesterol Beta HCG, Quant < 2 10/13/23 10/13/23 10/14/23 15:43 20:34 06:45 MCV 77.4 L MCH 24.0 L MCHC 31.0 RDW 15.9 Plt Count 296 MPV 8.6 L Immature Gran % (Auto) 0.7 H Neut % (Auto) 80.1 H Lymph % (Auto) 11.3 L Josephine % (Auto) 5.7 Eos % (Auto) 1.8 Baso % (Auto) 0.4 Lymph # (Auto) 1.1 L Josephine # (Auto) 0.6 Eos # (Auto) 0.2 Baso # (Auto) 0.0 Abs Immat Gran (auto) 0.07 H Absolute Neuts (auto) 7.9 Absolute Nucleated RBC 0.000 Nucleated RBC % (auto) 0.0 Whole Blood PT Whole Blood INR Anion Gap 14 Estim Creat Clear Calc 187.1 Estimated GFR > 60 POC Glucose 132 H Random Glucose 91 Calcium 9.4 Magnesium Total Bilirubin Direct Bilirubin AST ALT Alkaline Phosphatase Troponin I High Sens Total Protein Albumin Triglycerides 71 Cholesterol 139 LDL Cholesterol, Calc 92 HDL Cholesterol 33 L Beta HCG, Quant 10/14/23 10/14/23 07:28 10:56 MCV MCH MCHC RDW Plt Count MPV Immature Gran % (Auto) Neut % (Auto) Lymph % (Auto) Josephine % (Auto) Eos % (Auto) Baso % (Auto) Lymph # (Auto) Josephine # (Auto) Eos # (Auto) Baso # (Auto) Abs Immat Gran (auto) Absolute Neuts (auto) Absolute Nucleated RBC Nucleated RBC % (auto) Whole Blood PT Whole Blood INR Anion Gap Estim Creat Clear Calc Estimated GFR POC Glucose 146 H 148 H Random Glucose Calcium Magnesium Total Bilirubin Direct Bilirubin AST ALT Alkaline Phosphatase Troponin I High Sens Total Protein Albumin Triglycerides Cholesterol LDL Cholesterol, Calc HDL Cholesterol Beta HCG, Quant Assessment and Plan (1) Left hemiparesis: Status: Acute Plan 43 year old women admitted with possible stroke vs TIA with history of lupus and multiple strokes in the past. Stroke vs TIA Hx of multiple strokes and curiously none were seen on head CTA Neurology consultation> likely secondary to lupus, start Solu-Medrol x3 days if MRI negative continue plavix and statin monitor on telemetry MRI Hypertension Stable blood pressure Diabetes mellitus type 2 Sliding scale, Lantus and metformin Iron-deficiency anemia Continue iron supplementation Mental health Continue home medications super morbid obesity. BMI 64.1 Discussed importance of weight management as this may be contributing to worsening of other comorbidities DVT prophylaxis with Lovenox Attending Dr. Pena Full code Quality Stroke Does the patient have a stroke diagnosis?: No VTE Prior VTE?: No VTE Risk Level:: Medical - moderate - high VTE Device Contraindication: Treatment Not Indicated VTE Drug Contraindication: N/A - Med Ordered
[2023-10-14 15:51] VITALS: BP 131/77; PULSE 97; RESP 20; TEMP 36; O2SAT 96
[2023-10-14 16:33] LABS: Glucose, Whole Blood 146 mg/dL (60-115)
[2023-10-14 20:00] VITALS: BP 139/91; PULSE 115; RESP 18; TEMP 36; O2SAT 93
[2023-10-14] MEDS: Atorvastatin Calcium 40 MG TABLET PO (20:21)
[2023-10-14 20:38] LABS: Glucose, Whole Blood 223 mg/dL (60-115)
[2023-10-14] MEDS: Insulin Lispro 100 UNIT/ML 3 ML VIAL SUBCUT (20:48)
[2023-10-14] MEDS: Insulin Glargine,Hum.rec.anlog 100 UNIT/ML 10 ML VIAL 20 UNIT SUBCUT (20:48)
[2023-10-15] VITALS: BP 131/74; PULSE 98; RESP 18; TEMP 35.5; O2SAT 98
[2023-10-15 04:00] VITALS: BP 160/94; PULSE 104; RESP 20; TEMP 36.1; O2SAT 94
[2023-10-15 07:12] VITALS: BP 108/50; PULSE 98; RESP 18; TEMP 36.2; O2SAT 96
[2023-10-15 07:19] LABS: Glucose, Whole Blood 313 mg/dL (60-115)
[2023-10-15 09:09] VITALS: BP 108/50; PULSE 98; O2SAT 96
[2023-10-15] MEDS: Insulin Lispro 100 UNIT/ML 3 ML VIAL SUBCUT ×2 (09:15→12:05)
[2023-10-15] MEDS: Sennosides 8.6 MG TABLET 17.2 MG PO (10:43)
[2023-10-15] MEDS: Empagliflozin 10 MG TABLET PO (10:43)
[2023-10-15] MEDS: DULoxetine HCl 60 MG CAPSULE.DR PO (10:43)
[2023-10-15] MEDS: metFORMIN HCl 500 MG TABLET PO (10:43)
[2023-10-15] MEDS: Ferrous Sulfate 324 MG TABLET.DR PO (10:43)
[2023-10-15] MEDS: Clopidogrel Bisulfate 75 MG TABLET PO (10:43)
--- NOTE | 2023-10-15 10:52 | HO.PM.IMPN ---
Subjective Subjective Date of Service: 10/15/23 Review of Systems Follow up left sided weakness and facial droop still with some numbness to left arm and facial droop Physical Exam Vital Signs: Vital Signs: Last Vital Signs Temp 97.2 F 10/15/23 07:12 Pulse 98 10/15/23 09:09 Resp 18 10/15/23 07:12 BP 108/50 L 10/15/23 09:09 Pulse Ox 96 10/15/23 09:09 O2 Del Method Room Air 10/15/23 07:12 BMI result Body Mass Index 64.1 Appearing in no acute distress lung sounds are clear to auscultation heart regular rate rhythm, clear S1, S2 positive bowel sounds, abdomen is soft, nontender neuro patient is alert x3, no focal deficits Objective Data Active Medications Acetaminophen (Acetaminophen 325 Mg Tablet) 650 mg PO Q6H PRN PRN Reason: Pain, Mild (Pain Scale 1-3), fever or headache Albuterol Sulfate (Albuterol Sulfate 90 Mcg 8 Gm Inhaler) 3 puff INHALE DAILY PRN PRN Reason: Shortness Of Breath Or Wheezing Atorvastatin Calcium (Atorvastatin Calcium 40 Mg Tablet) 40 mg PO BEDTIME [facility] Last Admin: 10/14/23 20:21 Dose: 40 mg Documented By: SINGH Calcium Carbonate (Calcium Carbonate 750 Mg Tab.Chew) 750 mg PO Q4H PRN PRN Reason: Heartburn Clopidogrel Bisulfate (Clopidogrel Bisulfate 75 Mg Tablet) 75 mg PO DAILY [facility] Last Admin: 10/15/23 10:43 Dose: 75 mg Documented By: ANNETTA Duloxetine HCl (Duloxetine Hcl 60 Mg Capsule.) 60 mg PO DAILY [facility] Last Admin: 10/15/23 10:43 Dose: 60 mg Documented By: ANNETTA Empagliflozin (Empagliflozin 10 Mg Tablet) 10 mg PO DAILY [facility] Last Admin: 10/15/23 10:43 Dose: 10 mg Documented By: ANNETTA Ferrous Sulfate (Ferrous Sulfate 324 Mg Tablet.) 324 mg PO DAILY [facility] Last Admin: 10/15/23 10:43 Dose: 324 mg Documented By: ANNETTA Furosemide (Furosemide 20 Mg Tablet) 20 mg PO DAILY PRN; Protocol PRN Reason: ankle swelling Glucose (Glucose Gel 15 Gm Gel..Gram.) 15 gm PO Q15M PRN; Protocol PRN Reason: per Hypoglycemia Standing Ord. Dextrose (D10) 250 mls @ 750 mls/hr IV Q15M PRN; Protocol PRN Reason: per Hypoglycemia Standing Ord. Methylprednisolone Sodium Succinate 1,000 mg/ Sodium Chloride 66 mls @ 66 mls/hr IV DAILY [facility] Stop: 10/18/23 08:59 Insulin Glargine (Insulin Glargine,Hum.Rec.Anlog 100 Unit/Ml 10 Ml Vial) 20 unit SUBCUT BEDTIME [facility] Last Admin: 10/14/23 20:48 Dose: 20 unit Documented By: SINGH Insulin Human Lispro (Insulin Lispro 100 Unit/Ml 3 Ml Vial) 0 unit SUBCUT QIDACHS [facility]; Protocol Last Admin: 10/15/23 09:15 Dose: 8 unit Documented By: ANNETTA Magnesium Hydroxide (Milk Of Magnesia 30 Ml Oral.Susp) 30 ml PO DAILY PRN PRN Reason: Constipation Melatonin (Melatonin 3 Mg Tablet) 6 mg PO BEDTIME PRN PRN Reason: Insomnia Metformin HCl (Metformin Hcl 500 Mg Tablet) 500 mg PO DAILY [facility] Last Admin: 10/15/23 10:43 Dose: 500 mg Documented By: ANNETTA Senna (Sennosides 8.6 Mg Tablet) 17.2 mg PO DAILY [facility] Last Admin: 10/15/23 10:43 Dose: 17.2 mg Documented By: ANNETTA Labs 10/14/23 06:45 10/13/23 15:43 Labs: Laboratory Results - last 24 hr 10/14/23 10/14/23 10/14/23 10:56 16:26 20:23 POC Glucose 148 H 146 H 223 H 10/15/23 07:13 POC Glucose 313 H Assessment and Plan (1) Left hemiparesis: Status: Acute Plan 43 year old women admitted with possible stroke vs TIA with history of lupus and multiple strokes in the past. Lupus cerebritis, polyneuropathy Hx of multiple strokes and curiously none were seen on imaging Neurology consultation> likely secondary to lupus, start high dose IV Solu-Medrol x3 days continue plavix and statin monitor on telemetry MRI negative for acute or previous stroke Hypertension Stable blood pressure Diabetes mellitus type 2 Sliding scale, Lantus and metformin Iron-deficiency anemia Continue iron supplementation Mental health Continue home medications super morbid obesity. BMI 64.1 Discussed importance of weight management as this may be contributing to worsening of other comorbidities DVT prophylaxis with Lovenox Attending Dr. Chen Full code Quality Stroke Does the patient have a stroke diagnosis?: No VTE Prior VTE?: No VTE Risk Level:: Medical - moderate - high VTE Device Contraindication: Treatment Not Indicated VTE Drug Contraindication: N/A - Med Ordered
[2023-10-15 11:14] VITALS: BP 121/63; PULSE 94; RESP 18; TEMP 36.3; O2SAT 96
[2023-10-15 11:19] LABS: Glucose, Whole Blood 172 mg/dL (60-115)
[2023-10-15] MEDS: methylPREDNISolone Sod Succ 1,000 MG in 0.9 % Sodium Chloride 50 ML 66 MG IV (14:03)
[2023-10-15] MEDS: Enoxaparin Sodium 40 MG/0.4 ML SYRINGE SUBCUT (14:06)
[2023-10-15 15:39] VITALS: BP 135/88; PULSE 110; RESP 18; TEMP 37.2; O2SAT 97
[2023-10-15 15:44] LABS: Glucose, Whole Blood 141 mg/dL (60-115)
--- NOTE | 2023-10-15 16:16 | P.DS_ITS ---
DS: Providers Provider Date of Service: 10/15/23 Date of admission: 10/13/23 14:54 Primary care physician: Parish Aguilera MD Consults: 10/13/23 14:54 Consult to Neurology Routine Consulting Provider: Rick Somers Reason for consultation: stroke DS: Diagnosis Discharge Diagnosis (1) Left hemiparesis: Status: Acute DS: Summary Hospital Course Hospital Course: 43-year-old woman presented to the ER with left arm numbness and weakness with left-sided facial numbness that started this morning. Patient has a history of multiple CVAs in the past and has been treated with thrombosed lytics 1 year ago. She reported that she has had this left-sided numbness for at least a couple of days and then the facial droop started today and her face also felt numb. She denied any recent illness, fever, chest pain, nausea vomiting diarrhea, recent travel, sick contacts. Does have a history of lupus and has plans to follow up with a specialist regarding this and her strokes in [place]. In the ER, head CTA showed no evidence of acute intracranial hemorrhage or edematous territorial infarction, CTA of the head and neck without proximal occlusion or flow-limiting stenosis. Labs within acceptable limits, vital signs stable. Patient will be admitted for further management and treatment of acute stroke versus TIA 43 year old women treated for left arm numbness and weakness as well as left sided facial droop and numbness. Patient apparently has had multiple CVAs in the past, she was treated with thrombolytics approximately 1 year ago. She does have a history of lupus. She had head CTA and MRI here at [facility] which were both negative for any acute or chronic lesions. She was seen by Neurology who thought symptoms were likely related to her lupus, possibly lupus polyneuropathy versus lupus cerebritis. She received 1 dose of IV Solu- Medrol and plan is to do a taper of prednisone starting with 60 mg. She can follow-up with Neurology outpatient and if possibly she may get a referral for lupus specialist. At this time patient is ambulatory, denies any pain symptoms of left-sided weakness and numbness have improved. Plan is to discharge home and she is in agreement with this. Hypertension. Stable blood pressure Diabetes mellitus type 2. Continue home medications Iron-deficiency anemia. Continue iron supplementation Mental health. Continue home medications Super morbid obesity. BMI 64.1. Discussed importance of weight management as this may be contributing to worsening of other comorbidities Time Attestation Discharge Coordination Time (in mins): 35 Quality: Safe Use of Opioids Does Pt have an Active Cancer Diagnosis on the Problem List?: No Quality: Stroke Does the patient have a stroke diagnosis?: No Physical Exam Vital Signs: Vital Signs: Last Vital Signs Temp 98.9 F 10/15/23 15:39 Pulse 110 H 10/15/23 15:39 Resp 18 10/15/23 15:39 BP 135/88 10/15/23 15:39 Pulse Ox 97 10/15/23 15:39 O2 Del Method Room Air 10/15/23 15:39 BMI result Body Mass Index 64.1 Appearing in no acute distress head is normocephalic atraumatic eyes pupils are PERRLA sclera is anicteric mouth throat mucous membranes are intact and moist neck is supple no lymphadenopathy, no JVD noted lung sounds are clear to auscultation heart regular rate rhythm, clear S1, S2 positive bowel sounds, abdomen is soft, nontender neuro patient is alert x3, no focal deficits DS: Data Data Completed and Pending Labs on day of discharge: Laboratory Results - last 24 hr 10/14/23 10/14/23 10/15/23 16:26 20:23 07:13 POC Glucose 146 H 223 H 313 H 10/15/23 10/15/23 11:15 15:41 POC Glucose 172 H 141 H Discharge Plan Discharge Anticipated Discharge Date/Time: 10/15/23 16:04 Patient Disposition: Home, Self-Care Discharge Diagnosis: Lupus polyneuropathy Referrals: Rick Somers MD [Physician] - None Parish Aguilera MD [Primary Care Provider] - 1 Week Discharge Medications: New prednisone 10 mg tablet See Taper PO DIRECTED Qty: 40 0RF Taper: Prednisone 60 mg daily for 2 Days and 0 Hour 50 mg daily for 2 Days and 0 Hour 40 mg daily for 2 Days and 0 Hour 30 mg daily for 2 Days and 0 Hour 20 mg daily for 2 Days 10 mg daily for 2 Days Rx Instructions: see taper instructions atorvastatin 40 mg Tablet 40 mg PO BEDTIME Qty: 30 0RF clopidogrel 75 mg Tablet 75 mg PO DAILY Qty: 30 0RF Continued albuterol sulfate 90 mcg/actuation Hfa Aerosol Inhaler 3 puff inhalation DAILY PRN (Reason: Shortness Of Breath Or Wheezing) glipizide 5 mg tablet 5 mg PO BID fluticasone propionate 110 mcg/actuation HFA aerosol inhaler 3 puff INHALATION DAILY PRN (Reason: Shortness Of Breath Or Wheezing) insulin glargine [Lantus Solostar U-100 Insulin] 100 unit/mL (3 mL) insulin pen 20 unit subcut BEDTIME Jardiance 10 mg tablet 10 mg PO DAILY duloxetine 60 mg capsule,delayed release(DR/EC) 60 mg PO DAILY medroxyprogesterone 150 mg/mL suspension 150 mg IM [id number] Rx Instructions: Due Saturday10/18/23 ferrous sulfate 325 mg (65 mg iron) tablet 325 mg PO DAILY loratadine 10 mg capsule 10 mg PO DAILY PRN (Reason: seasonal allergies) acetaminophen 650 mg tablet extended release 1,300 mg PO DAILY Trulicity 0.75 mg/0.5 mL pen injector 0.75 mg subcut MO Aimovig Autoinjector 140 mg/mL auto-injector 140 mg subcut QMONTH furosemide 20 mg tablet 20 mg PO DAILY PRN (Reason: ankle swelling) sennosides [senna] 8.6 mg tablet 17.2 mg PO DAILY metformin 500 mg tablet 500 mg PO DAILY Discharge Orders: Discharge Order (Routine); Ordered 10/15/23 Ordered By: Oneyda Patterson Diet: Advance to usual diet Activity on Discharge: As tolerated Stand Alone Forms: Patient Portal Discharge page Print Language: Hebrew Care Plan Goals: Complete prednisone taper Follow up with neurologist as needed Health Concerns: Lupus polyneuropathy Plan of Treatment: Follow-up with primary care provider as needed Take all medications as prescribed Assessment: See discharge summary
== END 2023-10-15 05:55 | disposition home or self-care (01) | DRG 545 ==
LOC: HO.ED 14:07 → HO.EDOVER 15:27 → HO.IMC 17:09
PROVIDERS: Physician Assistant; Admitting Provider Nurse Practitioner Acute Care; Emergency Provider Emergency Medicine; PCP Internal Medicine Cardiovascular Disease; Visit Provider Nurse Practitioner Acute Care
DX: M32.19 Other organ or system involvement in systemic lupus erythematosus (principal); G05.3 Encephalitis and encephalomyelitis in diseases classified elsewhere; Z68.44 Body mass index [BMI] 60.0-69.9, adult; I69.354 Hemiplegia and hemiparesis following cerebral infarction affecting left non-dominant side; G63 Polyneuropathy in diseases classified elsewhere; I10 Essential (primary) hypertension; E11.9 Type 2 diabetes mellitus without complications; D50.9 Iron deficiency anemia, unspecified; E66.01 Morbid (severe) obesity due to excess calories; F43.10 Post-traumatic stress disorder, unspecified; Z79.84 Long term (current) use of oral hypoglycemic drugs; Z79.85 Long-term (current) use of injectable non-insulin antidiabetic drugs; Z79.899 Other long term (current) drug therapy
CPT/HCPCS: 36415; 70450; 70496; 70498; 70551; 80048; 80061; 80076; 82947; 83735; 84484; 84702; 85025; 85610; 85730; 93005; 97116; 97163; 97166; 97530; 99285; J1650; J2919; Q9967

== ENCOUNTER → 2023-10-13 14:54 | Outpatient (BNV) | payer OTHER, SELFPAY | PROVIDERS: Admitting Provider Nurse Practitioner Acute Care; Emergency Provider Emergency Medicine; PCP Internal Medicine Cardiovascular Disease; Visit Provider Psychiatry & Neurology Neurology | DX: I69.354 Hemiplegia and hemiparesis following cerebral infarction affecting left non-dominant side (principal) | CPT/HCPCS: 99222 ==

== ENCOUNTER → 2023-10-13 14:54 | Outpatient (BNV) | payer OTHER, SELFPAY | PROVIDERS: Admitting Provider Nurse Practitioner Acute Care; Emergency Provider Emergency Medicine; PCP Internal Medicine Cardiovascular Disease; Visit Provider Nurse Practitioner Acute Care | DX: I69.354 Hemiplegia and hemiparesis following cerebral infarction affecting left non-dominant side (principal) | CPT/HCPCS: 99223; 99232; 99239 ==